=== PATIENT | female | born 1935 | race Caucasian/White ===

== ENCOUNTER 2017-03-10 10:49 | Outpatient (CLI) | payer MEDICARE ==
[2017-03-10 12:32] LABS: Hematocrit 37.7 % (36.0-47.0); Mean Platelet Volume 7.8 fL (7.4-10.4); Red Blood Cell (RBC) Count 3.73 mill/uL (4.20-5.40); White Blood Cell (WBC) Count 8.2 thou/uL (4.8-10.8)
[2017-03-10 12:40] LABS: PTT 31.3 SEC (22.9-36.1)
[2017-03-10 12:48] LABS: Anion Gap 14 mmol/L (10-20); BUN (Urea Nitrogen) 28 mg/dL (9.8-20.1); Calc. Creatinine Clearance 0 mL/min (70-130); Calcium 10.5 mg/dL (7.8-10.44); Carbon Dioxide 26 mmol/L (23-31); Chloride 104 mmol/L (98-107); Estimated GFR-MDRD 42
[2017-03-10 12:49] LABS: ALT (SGPT) 20 U/L (8-55); AST (SGOT) 17 U/L (5-34); Alkaline Phosphatase 64 U/L (40-150); Bilirubin, Total 0.3 mg/dL (0.2-1.2); Globulin 3.5 g/dL (2.4-3.5)
== END 2017-03-10 10:50 | disposition home or self-care (01) ==
LOC: LABBT 10:49
PROVIDERS: ATTEND Internal Medicine Cardiovascular Disease
DX: Z01.818 Encounter for other preprocedural examination (principal); I35.0 Nonrheumatic aortic (valve) stenosis
CPT/HCPCS: 80053; 85027; 85610; 85730; 93005; 93010

== ENCOUNTER 2017-03-18 05:43 | Day surgery (SDC) | payer MEDICARE ==
[2017-03-10 11:15] VITALS: BMI 24.3
[~2017-03-18 05:43] MED LIST: Iopamidol 370 76% 100 ML VIAL ONE
[2017-03-18] MEDS ORDERED: Heparin 1000 UNIT/NS 500ML(OR) 1,000 ML ONE (06:31)
[2017-03-18] MEDS ORDERED: Fentanyl 100 MCG/2 ML VIAL ONE (07:16)
[2017-03-18] MEDS ORDERED: Midazolam HCl 2 mg/2 ml Vial ONE (07:16)
== END 2017-03-18 13:30 | disposition home or self-care (01) ==
LOC: CCL 05:43
PROVIDERS: ATTEND Internal Medicine Cardiovascular Disease
DX: I35.0 Nonrheumatic aortic (valve) stenosis (principal); I25.10 Atherosclerotic heart disease of native coronary artery without angina pectoris; I10 Essential (primary) hypertension; E11.9 Type 2 diabetes mellitus without complications; E78.5 Hyperlipidemia, unspecified; Z88.8 Allergy status to other drugs, medicaments and biological substances
CPT/HCPCS: 76942; 93455; C1769; 99152; 99153; J1644; J2250; J3010

== ENCOUNTER 2018-08-18 12:47 | Observation (INO) | payer MEDICARE ==
[2018-08-18 13:48] LABS: #Basophils 0.1 thou/uL (0.0-0.2); #Eosinphils 0.2 thou/uL (0.0-0.7); #Lymphocytes 2.6 thou/uL (1.20-3.40); #Neutrophils 5.6 thou/uL (1.40-6.50); %Basophils 0.6 % (0.0-1.0); %Lymphocytes 27.5 % (21.0-51.0); %Monocytes 10.5 % (0.0-10.0); %Neutrophils 59.3 % (42.0-75.0); Hemoglobin 11.3 g/dL (12.0-16.0); Mean Corpuscular HGB CONC 32.2 g/dL (32.0-36.0); Mean Corpuscular Hemoglobin 32.4 pg (27.0-31.0); Mean Platelet Volume 7.7 fL (7.4-10.4); Platelet Count 182 thou/uL (130-400); RBC Distribution Width 13.3 % (11.5-14.5); White Blood Cell (WBC) Count 9.5 thou/uL (4.8-10.8)
--- NOTE | 2018-08-18 13:52 | RAD ---
XR Chest 1 View Portable History: [Weakness and blurry vision chest pain.] Comparison: Radiograph 2015 Findings: Defibrillator leads project over the chest bilaterally. Multiple midline sternotomy wires. No pneumothorax or effusion. Evidence of prior cardiac surgery. No effusion or pneumothorax. Impression: Chronic findings. No acute intrathoracic abnormality.
[2018-08-18 14:07] LABS: ALT (SGPT) 36 U/L (8-55); AST (SGOT) 23 U/L (5-34); Albumin 4.2 g/dL (3.4-4.8); Alkaline Phosphatase 58 U/L (40-150); Anion Gap 15 mmol/L (10-20); BUN (Urea Nitrogen) 28 mg/dL (9.8-20.1); Bilirubin, Total 0.3 mg/dL (0.2-1.2); Calc. Creatinine Clearance 0 mL/min (70-130); Calcium 9.7 mg/dL (7.8-10.44); Carbon Dioxide 21 mmol/L (23-31); Chloride 108 mmol/L (98-107); Estimated GFR-MDRD 37; Glucose 104 mg/dL (83-110); Potassium 5.5 mmol/L (3.5-5.1); Protein, Total 7.2 g/dL (6.0-8.3); Sodium 138 mmol/L (136-145)
--- NOTE | 2018-08-18 16:21 | PDOC.FPRHP ---
- History of Present Illness Chief Complaint: Generalized weakness History of Present Illness: 83 yo F with hx of 4V CABG, multiple cardiac & peripheral arterial stent placement, aortic valve replacement presents to ER for weakness and blurry vision. Started this morning when she was talking with her friends. Generalized weakness and blurry vision. Denies aphasia, focal weakness, vision loss. No history of stroke. This happened a few days ago. Both episodes resolved after a few hours. No other associated sxs such as chest pain, palpitations, dypsnea, orthopnea, BLE edema. Had aortic valve replacement 1 year ago[address] Cross. Had EKG done earlier this month, reported normal. In the ED was bradycardic in the 50s. EKG showed possible Afib. By time of assessment pulse up to 60s with no intervention. - Allergies/Adverse Reactions Allergies Allergy/AdvReac Type Severity Reaction Status Date / Time hydralazine [Hydralazine] Allergy Unknown Verified 03/10/17 11:15 pregabalin [From Lyrica] Allergy SWELLING Verified 03/10/17 11:15 - Home Medications Medication Instructions Recorded Confirmed Type Cholecalciferol (Vitamin D3) 1,000 unit PO BID 03/17/13 03/10/17 History [Vitamin D3] Insulin Glargine,Hum.Rec.Anlog 16 unit SC QAM 03/17/13 03/10/17 History [Lantus Solostar] Levothyroxine Sodium [Synthroid] 50 mcg PO DAILY 03/17/13 03/10/17 History Lisinopril [Prinivil] 5 mg PO HS 03/17/13 03/10/17 History Metoprolol Succinate [Toprol XL] 25 mg PO BID 03/17/13 03/10/17 History metFORMIN HCl 500 mg PO BID 03/17/13 03/10/17 History Nitroglycerin [Nitrostat] 0.4 mg SL PRN PRN 03/20/13 03/10/17 History amLODIPine Besylate [Norvasc] 5 mg PO DAILY 03/20/13 03/10/17 History Aspirin [Aspirin EC] 81 mg PO DAILY 07/11/14 03/10/17 History Allopurinol [Zyloprim] 300 mg PO HS 03/10/17 03/10/17 History Ferrous Sulfate [Iron] 325 mg PO ASDIR 03/10/17 03/10/17 History Dyer-3 Fatty Acids/Fish Oil [Fish 2 cap PO DAILY 03/10/17 03/10/17 History Oil 1,000 mg Capsule] Rosuvastatin Calcium 10 mg PO HS 03/10/17 03/10/17 History - History PMHx: CAD s/p 4V CABG, Hypothyroidism, GERD, HLD, Chronic bronchitis, DM type II , HTN, Aortic valve replacement PSHx: CABG 4V, Aortic valve replacement, Cardiac cath 2016 with 50% stenosis of graft FHx: HTN, cardiac history Social: denies tobacco, social etoh, no drugs - Review of Systems General: denies: fever/chills, weight/appetite/sleep changes Eyes: reports: vision changes ENT: denies: nasal congestion, rhinorrhea Respiratory: denies: cough, congestion, shortness of breath Cardiovascular: denies: chest pain Gastrointestinal: denies: nausea, vomiting Genitourinary: denies: dysuria, polyuria Skin: denies: rashes Musculoskeletal: denies: stiffness, swelling Neurological: reports: weakness. denies: numbness, syncope, seizure - Vital signs BP: 121/40 HR: 45 RR: 15 Tmax: 98F Pox: 97% on RA Wt: 75 kg - Physical Exam Constitutional: NAD, awake, alert and oriented HEENT: normocephalic and atraumatic, PERRLA, EOMI, conjunctiva clear, no scleral icterus Neck: supple, FROM, trachea midline Chest: no-tender to palpation Heart: RRR -Heart: systolic aortic murmur Lungs: CTAB, no respiratory distress Abdomen: soft, non-tender Musculoskeletal: normal structure, normal tone Neurological: no focal deficit, CN II-XII intact Skin: no rash/lesions, good turgor FMR H&P: Results - Labs Result Diagrams: 08/18/18 13:35 08/18/18 13:35 Lab results: WBC 9.5 thou/uL (4.8-10.8) 08/18/18 13:35 Hgb 11.3 g/dL (12.0-16.0) L 08/18/18 13:35 Hct 35.2 % (36.0-47.0) L 08/18/18 13:35 MCV 101.0 fL (78.0-98.0) H 08/18/18 13:35 Plt Count 182 thou/uL (130-400) 08/18/18 13:35 Neutrophils % 59.3 % (42.0-75.0) 08/18/18 13:35 Sodium 138 mmol/L (136-145) 08/18/18 13:35 Potassium 5.5 mmol/L (3.5-5.1) H 08/18/18 13:35 Chloride 108 mmol/L (98-107) H 08/18/18 13:35 Carbon Dioxide 21 mmol/L (23-31) L 08/18/18 13:35 BUN 28 mg/dL (9.8-20.1) H 08/18/18 13:35 Creatinine 1.37 mg/dL (0.6-1.1) H 08/18/18 13:35 Glucose 104 mg/dL (83-110) 08/18/18 13:35 Calcium 9.7 mg/dL (7.8-10.44) 08/18/18 13:35 Total Bilirubin 0.3 mg/dL (0.2-1.2) 08/18/18 13:35 AST 23 U/L (5-34) 08/18/18 13:35 ALT 36 U/L (8-55) 08/18/18 13:35 Alkaline Phosphatase 58 U/L (40-150) 08/18/18 13:35 B-Natriuretic Peptide 138.1 pg/mL (0-100) H 08/18/18 13:35 Serum Total Protein 7.2 g/dL (6.0-8.3) 08/18/18 13:35 Albumin 4.2 g/dL (3.4-4.8) 08/18/18 13:35 - EKG Interpretation EKG: Afib with controlled ventricular response, HR 46, Complete LBBB - Radiology Interpretation Chest x-ray Status: report reviewed by me Additional comment: HERRERA FMR H&P: A/P - Problem List (1) New onset atrial fibrillation Current Visit: Yes Status: Acute Code(s): I48.91 - UNSPECIFIED ATRIAL FIBRILLATION (2) CAD (coronary artery disease) Current Visit: Yes Status: Acute Code(s): I25.10 - ATHSCL HEART DISEASE OF [place] CORONARY ARTERY W/O ANG PCTRS (3) Hypothyroid Current Visit: Yes Status: Acute Code(s): E03.9 - HYPOTHYROIDISM, UNSPECIFIED (4) GERD (gastroesophageal reflux disease) Current Visit: Yes Status: Acute Code(s): K21.9 - GASTRO-ESOPHAGEAL REFLUX DISEASE WITHOUT ESOPHAGITIS (5) HLD (hyperlipidemia) Current Visit: Yes Status: Acute Code(s): E78.5 - HYPERLIPIDEMIA, UNSPECIFIED (6) Chronic bronchitis Current Visit: Yes Status: Acute Code(s): J42 - UNSPECIFIED CHRONIC BRONCHITIS (7) DM type 2 (diabetes mellitus, type 2) Current Visit: Yes Status: Acute (8) Hypertension Current Visit: No Status: Acute Code(s): I10 - ESSENTIAL (PRIMARY) HYPERTENSION - Plan Symptomatic bradycardia vs. New onset Afib -Sxatic karey possible 2/2 new onset afib. Difficult to read baseline on EKG in ER, will repeat -EKG done 1 year ago showed bradycardia, 1st degree AVB, but no Afib -Patient has history of sinus bradycardia, onset of new sxs could be due to new afib -Trops negative, will trend -BNP mildly elevatd in low 100s, possible new onset HF. Will obtain TTE to reassess since last one was in Feb 2018 -Patient with extensive cardiac hx, s/p aortic valve replacement 1 yr ago, repeat TTE can reeeval for valvular etiology -Cardiac cath 2017 showed 50% stenosis of right coronary artery. If further stenosis has occurred, could be cause as well -Dr Cross consulted, plans to see patient in morning -CHADSVASC2 6, HASBLED4, will not start on nursing home anticoagulation, awaiting cards recs-will start ppx lovenox Hyperkalemia, mild -5.5, no EKG changes -pt scheduled to receive nighttime insulin, should dec -recheck in AM IDDM2 -SS to cover -will resume home meds HTN -home meds Hypothyroidism -home meds HLD -home meds CKD -at baseline Chronic anemia -stable CAD -home meds code: full PCP: connor dvt ppx: lovenox diet:HH/CC dispo: <2 midnightss Discussed w/ Dr. Mota FMR H&P: Upper Level - Pertinent history 83 yo F w/hx of CAD s/p CABG over 20 years ago, HTN, hypothyroid, CKD, and DM2 here with complaint of 2 episodes of generalized weakness lasting for several hours the resolving. She states that the first episode was 2 days ago and then again today. Currently she is asymptomatic. EKG with EMS showed afib with bradycardia. Labs in ED appear to be at baseline. ROS General denies fever or chills Neuro complains of generalized weakness. denies focal weakness or numbness CV denies CP, palpitations, or edema Resp denies SOB or cough Abd denies n/v/d - Pertinent findings See general internal medicine doctor note for vitals EKG shows LBBB and bradycardia. Possible afib, however baseline is poor. PE General A&O x4, no acute distress HEENT NCAT CV RRR, no murmur Resp CTA Neuro no focal deficits, normal UE and LE strength, CN II-XII intact - Plan Date/Time: 08/18/18 1620 I, Ruben Felipe DO, have evaluated this patient and agree with findings/plan as outlined by general internal medicine doctor resident. Pertinent changes/additions are listed here. 1. Symptomatic Bradycardia - possibly related to new onset afib. Currently in NSR and EKG has a poor baseline. Pt has hx of LBBB and 1st degree AV block - Admit to tele obs - Consult Cardiology, Dr Cross - [place] 6, HASBLED 4. Will start prophylactic lovenox now and discuss possibly termination clerk anticoagulation after cardiology has seen pt 2. CAD - Continue home meds - normal trops, no concern for ACS 3. Hypothyroid - TSH at target - Continue home meds 4. Chronic anemia - stable, continue home iron 5. DM2 - currently has normal sugar. - home meds - accucheck achs 6. HTN - controlled, continue home meds Dispo: currently stable. Likely length of stay less than 48 hours.
[2018-08-18 18:13] LABS: Troponin I Less than 0.010 ng/mL (< 0.028)
[2018-08-18 20:37] VITALS: BMI 24.2
[2018-08-18] MEDS ORDERED: Dextrose 5% in Water 1,000 ML IV PRN (20:42)
[2018-08-18] MEDS ORDERED: HumaLOG 300 UNITS/3 ML VIAL SC PRN (20:42)
[2018-08-18] MEDS ORDERED: Dextrose 50% Abboject 50 ML SYRINGE SLOW IVP PRN (20:42)
[2018-08-18] MEDS ORDERED: Insulin Regular 300 UNITS/3 ML VIAL SC PRN (20:42)
[2018-08-18 21:27] LABS: Troponin I 0.011 ng/mL (< 0.028)
[2018-08-19 06:48] LABS: #Eosinphils 0.2 thou/uL (0.0-0.7); #Lymphocytes 2.3 thou/uL (1.20-3.40); #Monocytes 0.9 thou/uL (0.11-0.59); #Neutrophils 4.7 thou/uL (1.40-6.50); %Basophils 0.6 % (0.0-1.0); %Lymphocytes 28.3 % (21.0-51.0); %Monocytes 10.5 % (0.0-10.0); %Neutrophils 58.5 % (42.0-75.0); Mean Corpuscular HGB CONC 32.7 g/dL (32.0-36.0); Mean Corpuscular Hemoglobin 32.6 pg (27.0-31.0); Mean Corpuscular Volume 99.6 fL (78.0-98.0); Mean Platelet Volume 7.7 fL (7.4-10.4); Platelet Count 165 thou/uL (130-400); RBC Distribution Width 13.3 % (11.5-14.5); Red Blood Cell (RBC) Count 3.39 mill/uL (4.20-5.40)
--- NOTE | 2018-08-19 06:49 | PDOC.FM ---
- Subjective Subjective: Denies any symptoms of dizziness, presyncope, palpitations. No overnight events. Feeling well. - Objective MAR Reviewed: Yes Vital Signs & Weight: Vital Signs (12 hours) Temp Pulse Resp BP Pulse Ox 08/19/18 06:18 57 L 161/77 H 08/19/18 03:48 98.0 F 71 16 192/78 H 94 L 08/18/18 20:40 98.3 F 73 16 172/70 H 98 Weight Weight 70.125 kg I&O: 08/17/18 08/18/18 08/19/18 06:59 06:59 06:59 Intake Total 600 Output Total 400 Balance 200 Result Diagrams: 08/19/18 06:27 08/19/18 06:27 Phys Exam - Physical Examination Constitutional: NAD HEENT: moist MMs Neck: supple bilateral radiation from aortic valve Respiratory: no wheezing, clear to auscultation bilateral Cardiovascular: RRR Gastrointestinal: soft, non-tender, positive bowel sounds Musculoskeletal: no edema Neurological: moves all 4 limbs Psychiatric: normal affect, A&O x 3 Skin: no rash Dx/Plan (1) CAD (coronary artery disease) Code(s): I25.10 - ATHSCL HEART DISEASE OF [place] CORONARY ARTERY W/O ANG PCTRS Status: Acute (2) DM type 2 (diabetes mellitus, type 2) Status: Acute (3) GERD (gastroesophageal reflux disease) Code(s): K21.9 - GASTRO-ESOPHAGEAL REFLUX DISEASE WITHOUT ESOPHAGITIS Status: Acute (4) HLD (hyperlipidemia) Code(s): E78.5 - HYPERLIPIDEMIA, UNSPECIFIED Status: Acute (5) Hypothyroid Code(s): E03.9 - HYPOTHYROIDISM, UNSPECIFIED Status: Acute (6) New onset atrial fibrillation Code(s): I48.91 - UNSPECIFIED ATRIAL FIBRILLATION Status: Acute (7) Chest pain Code(s): R07.9 - CHEST PAIN, UNSPECIFIED Status: Acute (8) Hypertension Code(s): I10 - ESSENTIAL (PRIMARY) HYPERTENSION Status: Acute (9) Bradycardia Code(s): R00.1 - BRADYCARDIA, UNSPECIFIED Status: Acute - Plan Plan: Ms Seay is an 83yo female with pmh of DM, HLD, CAD presenting with symptomatic bradycardia Symptomatic bradycardia - Trops negative x3 - Extensive cardiac hx, s/p aortic valve replacement 1 yr ago - Cardiac cath 2017: 50% stenosis of RCA. - Dr Cross consulted Elevated BNP - Mildly elevated 138 - Echo ordered Hyperkalemia, resolved IDDM2 - SSI, ACHS accuchecks, hypoglycemic protocol - CC diet - Continue home meds HTN - Continue home meds Hypothyroidism - Continue home meds HLD - Continue home meds CKD - At baseline Chronic anemia CAD - Continue home meds Code Status: FULL DVT ppx: Lovenox PCP: Dr Huitron Addendum - Attending - Attending Attestation Date/Time: 08/19/18 4920 I personally evaluated the patient and discussed the management with Dr. Torres. I agree with the History, Examination, Assessment and Plan documented above with any addition or exceptions noted below. The patient is sitting up in a chair. Her bradycardia is improved since holding metoprolol. will f/u with cardiology recs, but anticipate discharge later today.
[2018-08-19 07:10] LABS: Anion Gap 12 mmol/L (10-20); BUN (Urea Nitrogen) 24 mg/dL (9.8-20.1); Calc. Creatinine Clearance 39 mL/min (70-130); Calcium 9.6 mg/dL (7.8-10.44); Carbon Dioxide 27 mmol/L (23-31); Chloride 107 mmol/L (98-107); Estimated GFR-MDRD 43; Glucose 84 mg/dL (83-110); Potassium 4.6 mmol/L (3.5-5.1); Sodium 141 mmol/L (136-145)
[2018-08-19] MEDS ORDERED: Enoxaparin Sodium 40 MG/0.4 ML SYRINGE SC SCH (09:00)
[2018-08-19] MEDS ORDERED: Lisinopril 10 MG TAB PO SCH ×2 (10:08→10:15)
[2018-08-19] MEDS ORDERED: NIFEdipine XL 30 MG TAB PO SCH ×2 (10:08→10:15)
[2018-08-19 11:50] VITALS: BP 167/76; TEMP 97.9
--- NOTE | 2018-08-19 12:29 | CON ---
DATE OF CONSULTATION: 08/19/2018 REASON FOR CONSULTATION: Dizziness, lightheadedness, and bradycardia. HISTORY OF PRESENT ILLNESS: Ms. Seay is a very pleasant 83-year-old woman. She has a history of coronary artery disease and previous transcutaneous aortic valve replacement. The patient had also had previous bypass surgery. The patient had transcutaneous aortic valve replacement done in April of 2017. She had a cardiac catheterization done in the fall showing previously placed stents were patent with good flow. The patient had dizziness and lightheadedness when standing almost felt like she was very unsteady like she could even fall. She did get to sit down quickly and feel better, but just felt weak, came here to the emergency room, found to have bradycardia, initially was diagnosed with atrial fibrillation, but looking at the EKG looks like a sinus bradycardia. The patient is feeling better now. The patient otherwise has been doing fairly well, but had a similar episode within the last week. PAST MEDICAL HISTORY: 1. Previous transcutaneous aortic valve replacement for aortic stenosis. 2. Coronary artery disease. 3. Hypertension, labile. ALLERGIES: HYDRALAZINE. HYDRALAZINE ACTUALLY CAUSED ANGINA AND PREGABALIN. MEDICATIONS: At home included: 1. Metoprolol 25 mg twice a day. 2. Lisinopril 10 mg a day. 3. Insulin. 4. Nifedipine long-acting 30 mg a day. 5. Metformin. REVIEW OF SYSTEMS: CONSTITUTIONAL: No significant weight gain or loss. VISION: No changes. HEARING: No changes. PULMONARY: No cough or wheezing. GASTROINTESTINAL: No nausea, vomiting or diarrhea. SKIN: No rashes. NEUROLOGIC: No unilateral weakness or numbness. PSYCHIATRIC: No unusual depression or anxiety. PHYSICAL EXAMINATION: GENERAL: This is pleasant patient. VITAL SIGNS: Blood pressure is 157/68, pulse 71, it is regular. LUNGS: Clear. CARDIAC: Normal S1, normal S2 with soft systolic murmur left mid sternal border and left upper sternal border. No diastolic murmur. No S3. ABDOMEN: Soft and nontender. EXTREMITIES: No clubbing, cyanosis, or edema. DIAGNOSTIC STUDIES: EKG yesterday, the computer interpreted as atrial fibrillation, but there was significant baseline artifact and it is actually sinus bradycardia with a first-degree AV block and a left bundle branch block with a QRS duration of 0.14. ASSESSMENT: 1. Sinus bradycardia. 2. Labile blood pressure. 3. Coronary artery disease with previous bypass surgery and stent implantation. Most recent cardiac catheterization was done in 02/2017. This revealed the following: a. Three vessel disease. b. Internal mammary patent to the left anterior descending. c. Diffusely diseased saphenous vein graft to diffusely diseased obtuse marginal. d. Patent saphenous vein graft to the right coronary artery with 50% stenosis in the body of the graft, stent widely patent. PLAN: 1. Stop beta-rolan. 2. Monitor. 3. Echo pending. 4. If heart rate is adequate this afternoon, could be released home. Outpatient stress testing to be done. She does have some area, which cannot be revascularized in the circumflex distribution, but did not have any angina with any of these episodes and her troponin levels were all normal. Job ID: [id number]
--- NOTE | 2018-08-19 13:25 | PRG ---
DATE OF SERVICE: 08/19/2018 Ms. Seay had an echocardiogram done today. The ejection fraction is normal. The transcutaneous aortic valve is functioning normally. The patient has had no further bradycardia since being taken off metoprolol. The patient will come to our office and have a 5-day Holter monitor placed. In addition, stress testing will be done as an outpatient in view of her previous history of coronary artery disease and bradycardia. Job ID: [id number]
[2018-08-20] MEDS ORDERED: Lisinopril 10 MG TAB PO SCH (09:00)
[2018-08-20] MEDS ORDERED: NIFEdipine XL 30 MG TAB PO SCH (09:00)
--- NOTE | 2018-08-21 02:47 | DIS ---
DATE OF ADMISSION: 08/18/2018 DATE OF DISCHARGE: 08/19/2018 RESIDENT: Skye Torres MD. ADMITTING ATTENDING: Marcelo Mota MD. DISCHARGE ATTENDING: Wendy Sinha MD. CONSULT: Cardiology. PROCEDURE: 1. Chest x-ray, chronic findings. No intrathoracic abnormality. Defibrillator leads over chest bilaterally. Multiple midline sternotomy wires. No pneumothorax or effusion. 2. Echocardiogram. EF 55% to 60%. Mild mitral regurgitation. Normally functioning bioprosthetic valve in aortic position, peak gradient 16 mmHg and mean gradient 8 mmHg. Excellent function. No aortic regurgitation. Tricuspid valve is normal. Trace tricuspid regurgitation. PRIMARY DIAGNOSIS: Symptomatic bradycardia. SECONDARY DIAGNOSES: 1. Elevated BNP. 2. Hyperkalemia, resolved. 3. Insulin-dependent type 2 diabetes. 4. Hypertension. 5. Hypothyroidism. 6. Hyperlipidemia. 7. Chronic kidney disease. 8. Chronic anemia. 9. Coronary artery disease. DISCHARGE MEDICATIONS: 1. Allopurinol 300 mg at bedtime. 2. Aspirin 81 mg daily. 3. Vitamin D3 of 1000 units b.i.d. 4. Ferrous sulfate 325 mg 4 times a week. 5. Lantus 26 units q.a.m. 6. Levothyroxine 50 mcg daily. 7. Lisinopril 10 mg daily. 8. Metformin 500 mg b.i.d. 9. Nifedipine 30 mg daily. 10. Nitrostat 0.4 sublingual p.r.n. 11. Rosuvastatin 20 mg at bedtime. HISTORY OF PRESENT ILLNESS/HOSPITAL COURSE: Ms. Seay is an 83-year-old female with past medical history of CABG x4 vessels, multiple cardiac and peripheral artery stent placement, aortic valve replacement, who presented to the ER for weakness and blurry vision as well as a syncopal episode on Friday. She had an aortic valve replacement one year ago and follows with Dr. Cross and normal EKG earlier this month. In the ED, the patient was bradycardic in the 50s and he was concerning for possible atrial fibrillation. Admission vitals; blood pressure 121/40, heart rate 45, afebrile. Cardiac exam notable for systolic murmur with radiation to the carotids. EKG showed possible atrial fibrillation with controlled ventricular response, heart rate 46. Complete left bundle branch block. Troponins were negative. BNP 138.1. TSH is normal. Initial creatinine 1.37, 1.2 at discharge. The patient was anemic at 11.3. The patient did have mild hyperkalemia of 5.5, discharge potassium without medical intervention with the exception of patient's routine bedtime insulin was 4.6. Cardiology was consulted, Dr. Cross. He recommended taking the patient off metoprolol and this caused resolution of the patient's bradycardia. The patient will follow up in his office and have a 5- day Holter monitor placed in addition to stress test will be done as an outpatient. In regard to her insulin-dependent type 2 diabetes, hypertension, hypothyroidism, hyperlipidemia, and CAD, these were stable on her home medications. Her CKD was at baseline as well as her chronic anemia. DISPOSITION: Stable. DISCHARGE INSTRUCTIONS: 1. Location: Home. 2. Diet: Heart healthy, carb consistent. 3. Activity: No restrictions. 4. Follow up with PCP, Dr. Huitron within 3-7 days, as well as Dr. Cross, Cardiology. Job ID: [id number] [facility]
== END 2018-08-19 15:19 | disposition home or self-care (01) ==
LOC: ERS 12:47 → ERHOLD 17:16 → 2SW 20:24
PROVIDERS: ADMIT Family Medicine; ATTEND Family Medicine
DX: R00.1 Bradycardia, unspecified (principal); R53.1 Weakness; H53.8 Other visual disturbances; R42 Dizziness and giddiness; I25.10 Atherosclerotic heart disease of native coronary artery without angina pectoris; E03.9 Hypothyroidism, unspecified; K21.9 Gastro-esophageal reflux disease without esophagitis; E78.5 Hyperlipidemia, unspecified; J42 Unspecified chronic bronchitis; I48.91 Unspecified atrial fibrillation; E87.5 Hyperkalemia; I12.9 Hypertensive chronic kidney disease with stage 1 through stage 4 chronic kidney disease, or unspecified chronic kidney disease; E11.22 Type 2 diabetes mellitus with diabetic chronic kidney disease; N18.9 Chronic kidney disease, unspecified; D63.1 Anemia in chronic kidney disease; Z95.1 Presence of aortocoronary bypass graft; Z95.5 Presence of coronary angioplasty implant and graft; Z95.820 Peripheral vascular angioplasty status with implants and grafts; Z95.2 Presence of prosthetic heart valve; Z88.8 Allergy status to other drugs, medicaments and biological substances; Z79.4 Long term (current) use of insulin; Z79.82 Long term (current) use of aspirin; Z79.899 Other long term (current) drug therapy
CPT/HCPCS: 71045; 80048; 82962 ×2; 83735; 83880; 84484 ×2; 85025; 93005; 93306; 96372; 99285; G0378 ×2; 36415; 36416; 80053; 84443; J1650

== ENCOUNTER 2020-01-01 20:01 | Inpatient (IN) | payer MEDICARE, OTHER ==
--- NOTE | 2020-01-01 20:33 | RAD ---
Exam: Chest one view HISTORY:Chest pain. Comparison: 08/18/2018 FINDINGS: Cardiac silhouette:Normal cardiac silhouette. There are sternotomy wires and coronary artery stent. Aorta: Atherosclerosis Pulmonary vessels: Normal Costophrenic angles: Clear LUNGS: No masses or consolidation. Pneumothorax: None Osseous abnormalities: None IMPRESSION: No acute cardiopulmonary process. Atherosclerosis.
[2020-01-01] MEDS ORDERED: Morphine 4 MG/ML VIAL ONE (20:42)
[2020-01-01 20:47] LABS: #Eosinphils 0.1 thou/uL (0.0-0.7); #Lymphocytes 2.3 thou/uL (1.20-3.40); #Monocytes 0.9 thou/uL (0.11-0.59); #Neutrophils 7.8 thou/uL (1.40-6.50); %Basophils 0.4 % (0.0-1.0); %Eosinophils 0.5 % (0.0-10.0); %Lymphocytes 20.7 % (21.0-51.0); %Monocytes 8.4 % (0.0-10.0); %Neutrophils 69.9 % (42.0-75.0); Mean Corpuscular HGB CONC 32.5 g/dL (32.0-36.0); Mean Corpuscular Hemoglobin 33.3 pg (27.0-31.0); Mean Platelet Volume 8.2 fL (7.4-10.4); Platelet Count 187 thou/uL (130-400); Red Blood Cell (RBC) Count 3.31 mill/uL (4.20-5.40); White Blood Cell (WBC) Count 11.1 thou/uL (4.8-10.8)
[2020-01-01 21:22] LABS: ALT (SGPT) 16 U/L (8-55); AST (SGOT) 21 U/L (5-34); Albumin 4.2 g/dL (3.4-4.8); Alkaline Phosphatase 55 U/L (40-110); Anion Gap 21 mmol/L (10-20); BUN (Urea Nitrogen) 29 mg/dL (9.8-20.1); Bilirubin, Total 0.3 mg/dL (0.2-1.2); Calc. Creatinine Clearance 0 mL/min (70-130); Calcium 9.4 mg/dL (7.8-10.44); Carbon Dioxide 19 mmol/L (23-31); Chloride 106 mmol/L (98-107); Estimated GFR-MDRD 39; Glucose 62 mg/dL (83-110); Potassium 4.7 mmol/L (3.5-5.1); Protein, Total 7.2 g/dL (6.0-8.3); Sodium 141 mmol/L (136-145)
[2020-01-01] MEDS ORDERED: Dextrose 50% Abboject 50 ML SYRINGE SLOW IVP PRN (23:24)
[2020-01-01] MEDS ORDERED: HumaLOG 300 UNITS/3 ML VIAL SC PRN (23:24)
[2020-01-01] MEDS ORDERED: Dextrose 5% in Water 1,000 ML IV PRN (23:24)
[2020-01-01] MEDS ORDERED: Acetaminophen 325 MG TAB PO PRN (23:24)
--- NOTE | 2020-01-01 23:28 | PDOC.FPRHP ---
- History of Present Illness Chief Complaint: Chest Pain History of Present Illness: This is a 84 y/o F who presents today with CP that began this evening around 5: 45pm. She states that she began to experience chest tightness and took 2 of her home medication nitro which did not help with her symptoms. She admitted to radiation of the tightness into her L arm, but denied weakness/numbness to one side of her body, or facial droop, or SOB. She did admit to a little lightheadness but no vision changes. She denied any remitting or exacerbating factors. ED Course: asa, nitro - Allergies/Adverse Reactions Allergies Allergy/AdvReac Type Severity Reaction Status Date / Time hydralazine [Hydralazine] Allergy Unknown Verified 07/11/19 19:10 pregabalin [From Lyrica] Allergy SWELLING Verified 07/11/19 19:10 - Home Medications Medication Instructions Recorded Confirmed Type Cholecalciferol (Vitamin D3) 1,000 unit PO BID 03/17/13 01/01/20 History [Vitamin D3] Insulin Glargine,Hum.Rec.Anlog 26 unit SC QAM 03/17/13 01/01/20 History [Lantus Solostar] Levothyroxine Sodium [Synthroid] 50 mcg PO DAILY 03/17/13 01/01/20 History metFORMIN HCl 500 mg PO BID 03/17/13 01/01/20 History Nitroglycerin [Nitrostat] 0.4 mg SL PRN PRN 03/20/13 01/01/20 History Aspirin [Aspirin EC] 81 mg PO DAILY 07/11/14 01/01/20 History Allopurinol [Zyloprim] 300 mg PO HS 03/10/17 01/01/20 History Ferrous Sulfate [Iron] 325 mg PO ASDIR 03/10/17 01/01/20 History Rosuvastatin Calcium 20 mg PO HS 03/10/17 01/01/20 History Gabapentin 300 mg PO TID 01/01/20 01/01/20 History Lisinopril [Zestril] 10 mg PO HS 01/01/20 01/01/20 History NIFEdipine [Procardia XL] 30 mg PO HS 01/01/20 01/01/20 History Pantoprazole [Protonix] 40 mg PO DAILY 01/01/20 01/01/20 History - History PMHx: -HTN -DM -CAD -Gout PSHx: -CABG 20 years ago -carotid endartecomy -valve replacement 2018 -cholecystectomy -hysterectomy FHx: -unremarkable Social: never smoker, occasional etoh, no drug use - Review of Systems General: denies: fever/chills, weight/appetite/sleep changes, night sweats Eyes: denies: eye pain, vision changes ENT: denies: nasal congestion, rhinorrhea Respiratory: denies: cough, congestion, shortness of breath Cardiovascular: reports: chest pain. denies: palpitation, edema Gastrointestinal: denies: nausea, vomiting, diarrhea Genitourinary: denies: incontinence, dysuria, polyuria Skin: denies: lesions, jaundice, itching Musculoskeletal: denies: pain, tenderness Neurological: denies: numbness, syncope Psychological: denies: anxiety, depression - Vital signs 175/109 BP, HR 70, RR 12, Temp 98.7, O2 98% - Physical Exam Constitutional: NAD, awake, alert and oriented HEENT: normocephalic and atraumatic, PERRLA, grossly normal hearing Neck: supple Chest: no-tender to palpation Heart: RRR, normal S1/S2, no murmurs/rubs/gallops Lungs: CTAB, no respiratory distress, good air movement, no rales/rhonchi, no wheezing, no retractions Abdomen: soft, non-tender, bowel sounds present Musculoskeletal: normal structure, normal tone, ROM grossly normal Neurological: no focal deficit, CN II-XII intact, normal sensation Skin: no rash/lesions, good turgor, capillary refill <2 seconds Heme/Lymphatic: no unusual bruising or bleeding, no purpura, no petechia Psychiatric: normal mood and affect, good judgment and insight, intact recent and remote memory FMR H&P: Results - Labs Result Diagrams: 01/02/20 04:37 01/02/20 04:37 Lab results: WBC 11.1 thou/uL (4.8-10.8) H 01/01/20 20:37 Hgb 11.0 g/dL (12.0-16.0) L 01/01/20 20:37 Hct 33.9 % (36.0-47.0) L 01/01/20 20:37 MCV 102.0 fL (78.0-98.0) H 01/01/20 20:37 Plt Count 187 thou/uL (130-400) 01/01/20 20:37 Neutrophils % 69.9 % (42.0-75.0) 01/01/20 20:37 Sodium 141 mmol/L (136-145) 01/01/20 20:37 Potassium 4.7 mmol/L (3.5-5.1) 01/01/20 20:37 Chloride 106 mmol/L (98-107) 01/01/20 20:37 Carbon Dioxide 19 mmol/L (23-31) L 01/01/20 20:37 BUN 29 mg/dL (9.8-20.1) H 01/01/20 20:37 Creatinine 1.29 mg/dL (0.6-1.1) H 01/01/20 20:37 Glucose 62 mg/dL (83-110) L 01/01/20 20:37 Calcium 9.4 mg/dL (7.8-10.44) 01/01/20 20:37 Total Bilirubin 0.3 mg/dL (0.2-1.2) 01/01/20 20:37 AST 21 U/L (5-34) 01/01/20 20:37 ALT 16 U/L (8-55) 01/01/20 20:37 Alkaline Phosphatase 55 U/L (40-110) 01/01/20 20:37 Serum Total Protein 7.2 g/dL (6.0-8.3) 01/01/20 20:37 Albumin 4.2 g/dL (3.4-4.8) 01/01/20 20:37 - EKG Interpretation EKG: NSR, LBBB. Prolonged QRS. Possible ST elevations in V1-2. - Radiology Interpretation Chest x-ray Status: report reviewed by me (no acute cardiopulmonary process, athersclerosis) FMR H&P: A/P - Plan This is an 84 y/o F who presents today with chest pain. 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 continue to monitor. FMR H&P: Upper Level - Plan Date/Time: 01/01/202327 I, Flaquito Santiago PGY3, have evaluated this patient and agree with findings/plan as outlined by software development intern resident. Pertinent changes/additions are listed here. 84F with pmh of CAD s/p 4v CABG decades ago presents with complaint of substernal CP which was relieved by morphine, nitro, ASA. Her exam significant for normal cardiopulmonary exam A/P: CP likely 2/2 GI vs. MSK A- hemodynamically stable and CP is resolved. trop negative, cxr wnl, EKG shows some ST elevations in V1-V2 and LBBB (EKG from 2019 shows LBBB and some ST elevation in V1). Echo from August 2018 showed EF of 55-60%. She follows with Dr. Cross. P- admit to tele for observation -trend trops -plan for AM stress test -npo at midnight and hold AM metoprolol -continue home crestor chart review hx of Afib A- Currently in NSR. Afib was new diagnosis on last admission. Pt is not sure of this diagnosis but does know that she followed up with Dr. Cross. She had been on Brilinta but was taken off. P- continue home metoprolol after stress test -continue home ASA -f/u cardiology regarding blood thinners DM2 -home meds, accuchecks, CC diet HTN, hypothyroid, CKD, HLD -quiescent, continue home meds CODE: FULL dispo: tele, obs. expect stay < 2 midnights IVF: KVO Diet: CC, npo at midnight PCP: Elana Addendum - Attending - Attending Attestation Date/Time: 01/02/20 0642 I personally evaluated the patient and discussed the management with Dr. Ambrosio. I agree with the History, Examination, Assessment and Plan documented above with any addition or exceptions noted below. The patient admitted with chest pain and took nitro at home without relief. Her cardiac enzymes have increased overnight. She now has minimal to no chest pain. Will consult cardiology, Dr. Cross is her bi manager.
[2020-01-01 23:45] VITALS: BMI 22.4
[2020-01-02] MEDS ORDERED: Nitroglycerin 0.4 MG TAB (25 Tab Bottle) SL PRN (00:11)
[2020-01-02] MEDS ORDERED: Rosuvastatin 20 MG TAB PO SCH ×2 (00:15→21:00)
[2020-01-02] MEDS ORDERED: NIFEdipine XL 30 MG TAB PO SCH ×2 (00:15→21:00)
[2020-01-02] MEDS ORDERED: Lisinopril 10 MG TAB PO SCH ×2 (00:30→21:00)
[2020-01-02] MEDS ORDERED: Allopurinol 300 MG TAB PO SCH ×2 (00:30→21:00)
[2020-01-02] MEDS ORDERED: Gabapentin 300 MG CAP PO SCH ×2 (00:30→09:00)
[2020-01-02 05:22] LABS: #Basophils 0.1 thou/uL (0.0-0.2); #Eosinphils 0.1 thou/uL (0.0-0.7); #Lymphocytes 2.4 thou/uL (1.20-3.40); #Neutrophils 5.3 thou/uL (1.40-6.50); %Basophils 1.2 % (0.0-1.0); %Lymphocytes 26.7 % (21.0-51.0); Hemoglobin 10.4 g/dL (12.0-16.0); Mean Corpuscular HGB CONC 32.9 g/dL (32.0-36.0); Mean Corpuscular Hemoglobin 33.3 pg (27.0-31.0); Mean Platelet Volume 8.2 fL (7.4-10.4); Platelet Count 177 thou/uL (130-400); Red Blood Cell (RBC) Count 3.13 mill/uL (4.20-5.40); White Blood Cell (WBC) Count 8.9 thou/uL (4.8-10.8)
--- NOTE | 2020-01-02 05:41 | PDOC.FM ---
- Subjective Subjective: Very sleepy this morning. Reports that her chest pain has improved and that she is not experiencing any at the moment. She does reports some burning in her lower extremities, but says that this is not new and is something she experiences regularly. Denies SOB, NV - Objective MAR Reviewed: Yes Vital Signs & Weight: Vital Signs (12 hours) Temp Pulse Resp BP BP Pulse Ox 01/02/20 03:10 97.9 F 85 16 140/65 96 01/02/20 00:29 95 177/77 H 01/02/20 00:28 107 H 177/77 H 01/01/20 23:24 97.7 F 107 H 18 199/86 H 98 Weight Weight 64.909 kg I&O: 12/31/19 01/01/20 01/02/20 06:59 06:59 06:59 Intake Total 600 Output Total 800 Balance -200 Result Diagrams: 01/02/20 04:37 01/02/20 04:37 EKG Reviewed by me: Yes (SR) Phys Exam - Physical Examination Constitutional: NAD (Very sleepy on exam) Respiratory: no wheezing, no rales, no rhonchi, clear to auscultation bilateral Cardiovascular: RRR, no significant murmur, no rub Gastrointestinal: soft, non-tender, no distention, positive bowel sounds Musculoskeletal: no edema Skin: no rash Dx/Plan - Plan Plan: Chest pain 2/2 to ACS vs. GI vs. 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 > 1.24, near baseline -continue to monitor HTN -initial SBPs in 160s-170s, improved with night meds -will restart home meds -continue to monitor Anemia -chronic -Hgb: 11 > 10.4 -MCV > 100; will order B12 and folate -restart home iron DM type 2 -home metformin -holding home lantus -SSI, hypoglycemia protocol Hx of Gout -home meds Hypothyroidism -home meds GERD -home meds CODE: FULL DIET: HH VTE: th lovenox PCP: Elana Dispo: pending further medical management Addendum - Attending - Attending Attestation Date/Time: 01/02/20 1312 I personally evaluated the patient and discussed the management with Dr. Kruger. I agree with the History, Examination, Assessment and Plan documented above with any addition or exceptions noted below. Patient's cardiac enzymes have increased overnight. Her chest pain is better. Consulting cardiology for further recs.
[2020-01-02 05:43] LABS: Anion Gap 14 mmol/L (10-20); BUN (Urea Nitrogen) 27 mg/dL (9.8-20.1); Calc. Creatinine Clearance 34 mL/min (70-130); Calcium 9.3 mg/dL (7.8-10.44); Carbon Dioxide 25 mmol/L (23-31); Chloride 106 mmol/L (98-107); Estimated GFR-MDRD 41; Glucose 83 mg/dL (83-110); Potassium 4.3 mmol/L (3.5-5.1); Sodium 141 mmol/L (136-145)
[2020-01-02 05:49] LABS: Troponin I 0.733 ng/mL (< 0.028)
[2020-01-02] MEDS ORDERED: Levothyroxine Sodium 50 MCG TAB PO SCH (06:00)
[2020-01-02] MEDS ORDERED: Enoxaparin Sodium 60 MG/0.6 ML SYRINGE SC SCH ×2 (06:35→09:00)
[2020-01-02] MEDS ORDERED: metFORMIN 500 MG TAB PO SCH (08:00)
[2020-01-02] MEDS ORDERED: Nitroglycerin 0.4 MG TAB 1 EACH SL PRN (08:27)
[2020-01-02] MEDS ORDERED: Non-Formulary Item 1 EACH (Ferrous Sulfate [Iron] 325 MG) PO SCH (08:30)
[2020-01-02] MEDS ORDERED: Enoxaparin Sodium 40 MG/0.4 ML SYRINGE SC SCH (09:00)
[2020-01-02] MEDS ORDERED: Cholecalciferol 1,000 UNITS (25 MCG) TAB PO SCH (09:00)
[2020-01-02] MEDS ORDERED: Non-Formulary Item 1 EACH (Cholecalciferol (Vitamin D3) [Vitamin D3] 1,000 UNIT) PO SCH (09:00)
[2020-01-02] MEDS ORDERED: Aspirin 81 mg Enteric Coated Tablet PO SCH (09:00)
[2020-01-02] MEDS: Aspirin 81 mg Enteric Coated Tablet PO SCH (09:51)
[2020-01-02] MEDS: Cholecalciferol 1,000 UNITS (25 MCG) TAB PO SCH ×2 (09:51→21:39)
[2020-01-02] MEDS: Levothyroxine Sodium 50 MCG TAB PO SCH (09:52)
[2020-01-02] MEDS: Gabapentin 300 MG CAP PO SCH ×3 (09:52→21:38)
[2020-01-02] MEDS: Enoxaparin Sodium 80 MG/0.8 ML SYRINGE SC SCH ×2 (09:52→21:40)
[2020-01-02] MEDS: metFORMIN 500 MG TAB PO SCH ×2 (09:52→21:40)
[2020-01-02] MEDS: Pantoprazole 40 MG GRANULES PACKET PO SCH (09:54)
[2020-01-02 12:44] LABS: SARS-CoV-2 MS2 Positive; SARS-CoV-2 N Gene Negative; SARS-CoV-2 S Gene Negative; SARS-CoV-2 by NAA Not Detected (NotDetected); SARS-CoV-2 orf1ab Negative
[2020-01-02] MEDS: Communication Order-Pharmacy FS SCH (16:38)
[2020-01-02] MEDS ORDERED: Rosuvastatin 10 MG TAB PO SCH (21:00)
[2020-01-02] MEDS: Allopurinol 300 MG TAB PO SCH (21:38)
[2020-01-02] MEDS: Rosuvastatin 20 MG TAB PO SCH (21:39)
[2020-01-02] MEDS: NIFEdipine XL 30 MG TAB PO SCH (21:39)
[2020-01-02] MEDS: Lisinopril 10 MG TAB PO SCH (21:40)
--- NOTE | 2020-01-03 05:39 | PDOC.FM ---
- Subjective Subjective: Sleeping comfortably this morning. Going for a cath later this morning. Reports good PO intake yesterday. Denies chest pain, SOB, N/V. Last BM days ago, would like miralax. - Objective MAR Reviewed: Yes Vital Signs & Weight: Vital Signs (12 hours) Temp Pulse Resp BP Pulse Ox 01/03/20 04:35 62 18 134/65 98 01/02/20 21:40 147/65 H 01/02/20 21:39 75 147/65 H 01/02/20 20:30 98.2 F 75 18 147/65 H 98 Weight Weight 64.909 kg I&O: 01/01/20 01/02/20 01/03/20 06:59 06:59 06:59 Intake Total 600 900 Output Total 800 600 Balance -200 300 Result Diagrams: 01/03/20 05:40 01/03/20 05:47 EKG Reviewed by me: Yes (NS 1st degree AV block BBB) Phys Exam - Physical Examination Constitutional: NAD Respiratory: no wheezing, no rales, no rhonchi, clear to auscultation bilateral Cardiovascular: RRR, no significant murmur, no rub Gastrointestinal: soft, non-tender, no distention, positive bowel sounds Musculoskeletal: no edema Neurological: non-focal, normal sensation Dx/Plan - Plan Plan: Chest pain 2/2 to ACS vs. GI vs. 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
[2020-01-03 05:57] LABS: #Basophils 0.1 thou/uL (0.0-0.2); #Eosinphils 0.2 thou/uL (0.0-0.7); #Lymphocytes 2.3 thou/uL (1.20-3.40); #Monocytes 0.8 thou/uL (0.11-0.59); #Neutrophils 3.9 thou/uL (1.40-6.50); %Basophils 1.2 % (0.0-1.0); %Eosinophils 2.4 % (0.0-10.0); %Lymphocytes 32.2 % (21.0-51.0); %Monocytes 11.3 % (0.0-10.0); %Neutrophils 52.9 % (42.0-75.0); Hemoglobin 10.5 g/dL (12.0-16.0); Mean Corpuscular HGB CONC 32.8 g/dL (32.0-36.0); Mean Corpuscular Hemoglobin 33.1 pg (27.0-31.0); Mean Platelet Volume 7.8 fL (7.4-10.4); Platelet Count 167 thou/uL (130-400); RBC Distribution Width 13.1 % (11.5-14.5); Red Blood Cell (RBC) Count 3.16 mill/uL (4.20-5.40); White Blood Cell (WBC) Count 7.3 thou/uL (4.8-10.8)
[2020-01-03] MEDS ORDERED: Sodium Chloride 0.9% 1,000 ML IV SCH (06:00)
[2020-01-03] MEDS: Levothyroxine Sodium 50 MCG TAB PO SCH (06:00)
[2020-01-03] MEDS: Aspirin 81 mg Enteric Coated Tablet PO SCH (06:00)
[2020-01-03] MEDS: Gabapentin 300 MG CAP PO SCH ×3 (06:00→19:41)
[2020-01-03 06:17] LABS: Anion Gap 14 mmol/L (10-20); BUN (Urea Nitrogen) 30 mg/dL (9.8-20.1); Calc. Creatinine Clearance 33 mL/min (70-130); Calcium 9.3 mg/dL (7.8-10.44); Carbon Dioxide 26 mmol/L (23-31); Chloride 106 mmol/L (98-107); Estimated GFR-MDRD 40; Glucose 90 mg/dL (83-110); Potassium 4.6 mmol/L (3.5-5.1); Sodium 141 mmol/L (136-145)
[2020-01-03] MEDS ORDERED: Ferrous Sulfate 325 MG TAB PO SCH (08:00)
[2020-01-03] MEDS: Ferrous Sulfate 325 MG TAB PO SCH (08:12)
[2020-01-03] MEDS: Insulin Glargine 26 UNITS in Pre-Filled Syringe 1 EACH SC SCH (08:12)
[2020-01-03] MEDS: Cholecalciferol 1,000 UNITS (25 MCG) TAB PO SCH ×2 (08:12→19:42)
[2020-01-03] MEDS: Communication Order-Pharmacy FS SCH (08:13)
[2020-01-03] MEDS: metFORMIN 500 MG TAB PO SCH ×2 (08:13→19:42)
[2020-01-03] MEDS: Pantoprazole 40 MG GRANULES PACKET PO SCH (08:15)
[2020-01-03] MEDS ORDERED: Lidocaine 1% (PF) 30 ML VIAL ONE (08:26)
[2020-01-03] MEDS ORDERED: Nitroglycerin 0.4 MG TAB (25 Tab Bottle) SL PRN (10:59)
[2020-01-03] MEDS ORDERED: Acetaminophen/Codeine 30-300mg Tablet PO PRN ×2 (10:59)
[2020-01-03] MEDS ORDERED: Sodium Chloride 0.9% 200 ML IV PRN (10:59)
[2020-01-03] MEDS ORDERED: Iopamidol 370 76% 100 ML VIAL ONE (12:08)
--- NOTE | 2020-01-03 15:39 | CON ---
DATE OF CONSULTATION: REASON FOR CONSULTATION: Psw-MX-roarazrzp myocardial infarction. HISTORY OF PRESENT ILLNESS: Ms. Mcdaniel is an 84-year-old woman who has a relatively complex cardiac history as will be outlined below, presented with a non-ST elevation myocardial infarction. Jonas has a long history of coronary artery disease. She had a history of bypass surgery x4 in 1994. She has undergone multiple procedures from a coronary standpoint, but ultimately did undergo stent implantation in the right coronary artery bypass graft and repeat stenting in 02/2013. She had a patent internal mammary artery to the LAD and a diffusely diseased circumflex, not amenable to any further percutaneous treatment. 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 An angiogram was done through the right revealed she had a widely patent right coronary graft and it appeared that in retrospect the patient's pain was related to doses of hydralazine. She had underwent cardiac catheterization in 2013, had patent graft to the right coronary with good flow, internal mammary with good flow, diffuse disease in the obtuse marginal system. The previous stents in the right coronary artery are a 3.5 x 26 Resolute Integrity drug-coated stent, 3.5 x 16 to overlap, and then 3.5 more proximally. FilterWire was used. In 2012, she also had a 3.5 x 18 stent. The patient ultimately had increasing chest pain and was found to have worsening aortic stenosis, underwent repeat catheterization in 02/2017. At that time, she was found to have 3-vessel disease, patent LAD and ACEVEDO graft, diffusely diseased obtuse marginal system, not amenable to therapy. The patent vein graft to the right with a 50% stenosis. It was decided that she was really not a good candidate for repeat bypass surgery as she is relatively frail. Therefore, she underwent transcutaneous aortic valve replacement with an excellent result. The patient has done well up until this admission when she had prolonged episode of chest pressure yesterday, ultimately came to the hospital, found to have a peak troponin of 0.220, then 0.733. Creatinine 1.24. The patient is resting comfortably now, just feels "jittery in her chest sometimes." CURRENT MEDICATIONS: She is on: 1. Metformin. 2. Aspirin. 3. Rosuvastatin. 4. Nifedipine long-acting 30 mg a day. 5. Lisinopril. REVIEW OF SYSTEMS: CONSTITUTIONAL: No significant weight gain or loss. VISION: No changes. HEARING: No changes. PULMONARY: No cough or wheezing. GASTROINTESTINAL: No nausea, vomiting, or diarrhea. SKIN: No rashes. NEUROLOGIC: No unilateral weakness or numbness. PSYCHIATRIC: No unusual depression or anxiety. PHYSICAL EXAMINATION: GENERAL: This is a somewhat fragile-appearing 84-year-old woman, 5 feet 7 inches tall, 143 pounds, blood pressure 140/60, and pulse 80. LUNGS: Clear. CARDIAC: Normal S1 and normal S2. ABDOMEN: Soft and nontender. EXTREMITIES: Warm and dry. No clubbing or cyanosis. There is no edema. NEUROLOGIC: She is alert and oriented. PERTINENT LABORATORY DATA: Troponin up to 0.733. EKG reveals incomplete left bundle-branch block. ASSESSMENT: 1. Pfi-CR-kqlzqheml myocardial infarction. 2. Previous transcutaneous aortic valve replacement. 3. Previous stent implantations. 4. Previous bypass as outlined above. 5. Coronary artery disease. PLAN: Would recommend proceeding back to the laborer cheesemaking. Discussed risk of stroke, heart attack, iodine allergy, interfering the blood supply to leg or kidney, stent thrombosis, stent restenosis. She understands and wished to proceed. May not visualize the coronary artery knik depending on how difficult this is to do with the transcutaneous valve in place, it is really not necessary to visualize the knik coronaries as she is graft dependent in all 3 distributions. Job ID: [id number]
[2020-01-03] MEDS ORDERED: Insulin Regular 300 UNITS/3 ML VIAL ONE (16:35)
[2020-01-03] MEDS: Lisinopril 10 MG TAB PO SCH (19:41)
[2020-01-03] MEDS: NIFEdipine XL 30 MG TAB PO SCH (19:42)
[2020-01-03] MEDS: Rosuvastatin 20 MG TAB PO SCH (19:42)
[2020-01-03] MEDS: Allopurinol 300 MG TAB PO SCH (19:42)
--- NOTE | 2020-01-04 05:46 | PDOC.FM ---
- Subjective Subjective: No acute events overnight. Denies chest pain, SOB, N/V. Reports that she was told she would be able to go home this morning. - Objective MAR Reviewed: Yes Vital Signs & Weight: Vital Signs (12 hours) Temp Pulse Resp BP BP BP Pulse Ox 01/04/20 03:06 97.6 F 59 L 18 137/64 97 01/03/20 20:00 99 01/03/20 19:42 51 L 131/60 01/03/20 19:41 131/60 01/03/20 19:36 98.0 F 51 L 20 131/60 99 Weight Weight 66.451 kg I&O: 01/02/20 01/03/20 01/04/20 06:59 06:59 06:59 Intake Total 185 782 3582 Output Total 800 600 900 Balance -200 300 550 Result Diagrams: 01/04/20 07:50 01/04/20 07:50 EKG Reviewed by me: Yes (SR BBB) Phys Exam - Physical Examination Constitutional: NAD Neck: supple, full ROM Respiratory: no wheezing, no rales, no rhonchi, clear to auscultation bilateral Cardiovascular: RRR, no significant murmur, no rub Gastrointestinal: soft, non-tender, no distention, positive bowel sounds Musculoskeletal: no edema Neurological: moves all 4 limbs Psychiatric: normal affect Dx/Plan - Plan Plan: NSTEMI -extensive cardic history, echo in 2019 showed EF 55% -EKG: old LBBB, prolonged QRS, questionable ST elevations V1/2 -s/p asa and nitro in ED -chest pain has resolved -trop: 0.019 > 0.220 > 0.733 -on tele -card consulted (01/02); cath: 3 vessel dz seen on prev cath, 50-55% stenosis in RCA graft in mid area of SVG, medical management; TTE: EF of 55-60% 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
[2020-01-04 07:56] LABS: #Basophils 0.1 thou/uL (0.0-0.2); #Eosinphils 0.1 thou/uL (0.0-0.7); #Lymphocytes 2.5 thou/uL (1.20-3.40); #Monocytes 1.1 thou/uL (0.11-0.59); #Neutrophils 5.1 thou/uL (1.40-6.50); %Basophils 0.6 % (0.0-1.0); %Eosinophils 1.2 % (0.0-10.0); %Lymphocytes 28.8 % (21.0-51.0); %Neutrophils 57.4 % (42.0-75.0); Hemoglobin 10.4 g/dL (12.0-16.0); Mean Corpuscular HGB CONC 32.6 g/dL (32.0-36.0); Mean Corpuscular Hemoglobin 33.6 pg (27.0-31.0); Mean Platelet Volume 7.8 fL (7.4-10.4); Platelet Count 155 thou/uL (130-400); RBC Distribution Width 12.9 % (11.5-14.5); Red Blood Cell (RBC) Count 3.08 mill/uL (4.20-5.40); White Blood Cell (WBC) Count 8.8 thou/uL (4.8-10.8)
[2020-01-04 08:23] LABS: Anion Gap 12 mmol/L (10-20); BUN (Urea Nitrogen) 30 mg/dL (9.8-20.1); Calc. Creatinine Clearance 36 mL/min (70-130); Carbon Dioxide 26 mmol/L (23-31); Chloride 107 mmol/L (98-107); Estimated GFR-MDRD 43; Glucose 94 mg/dL (83-110); Potassium 4.4 mmol/L (3.5-5.1); Sodium 141 mmol/L (136-145)
[2020-01-04] MEDS ORDERED: Folic Acid 1 MG TAB PO SCH (09:00)
[2020-01-04] MEDS: metFORMIN 500 MG TAB PO SCH (09:07)
[2020-01-04] MEDS: Levothyroxine Sodium 50 MCG TAB PO SCH (09:07)
[2020-01-04] MEDS: Cholecalciferol 1,000 UNITS (25 MCG) TAB PO SCH (09:07)
[2020-01-04] MEDS: Ferrous Sulfate 325 MG TAB PO SCH (09:07)
[2020-01-04] MEDS: Pantoprazole 40 MG GRANULES PACKET PO SCH (09:07)
[2020-01-04] MEDS: Aspirin 81 mg Enteric Coated Tablet PO SCH (09:07)
[2020-01-04] MEDS: Gabapentin 300 MG CAP PO SCH (09:07)
[2020-01-04] MEDS: Insulin Glargine 26 UNITS in Pre-Filled Syringe 1 EACH SC SCH (09:08)
--- NOTE | 2020-01-04 11:55 | PRG ---
DATE OF SERVICE: 01/04/2020 Ms. Seay is sitting quietly in her chair, in no distress. She did have her heart cath yesterday and does have, of course, coronary artery disease, which Dr. Cross feels can be treated medically. She is therefore ready for discharge later this afternoon with medications as adjusted per Cardiology. Job ID: [id number]
[2020-01-04 12:25] VITALS: BP 134/64; TEMP 98.1
--- NOTE | 2020-01-04 12:51 | PRG ---
DATE OF SERVICE: 01/04/2020 SUBJECTIVE: Ms. Seay is going to be released home today. She is not going to be put on a beta-rolan due to bradycardia. She is not going to be put on dual antiplatelet drugs due to iron-deficiency anemia. She is going home on nifedipine 30 mg a day, lisinopril 10 mg a day, Rosuvastatin 20 mg a day, aspirin 81 mg a day. She will follow up in the office in 2 to 3 weeks. Job ID: [id number]
--- NOTE | 2020-01-05 01:03 | DIS ---
DATE OF ADMISSION: 01/03/2020 DATE OF DISCHARGE: 01/04/2020 RESIDENT: Christa Kruger MD ADMITTING ATTENDING: Wendy Sinha MD DISCHARGE ATTENDING: Colton Patel MD CONSULTS: Cardiology, Dr. Cross. PROCEDURES/IMAGES: 1. Chest x-ray, no acute cardiopulmonary process. Atherosclerosis. 2. cath lab technologist physician report, 3-vessel coronary artery disease with occluded LAD, circumflex, RCA documented on previous cath. Patent ACEVEDO to LAD. Recently occluded SVG to OM and small distal vessel. Patent SVG to RCA, 50% to 55% stenosis in the RCA graft proximal, distant, and mid area of SVG. 3. Echocardiogram report, left ventricle size normal. Ejection fraction estimated at 55% to 60%. Transcutaneous aortic valve prosthesis in place. No aortic insufficiency. Peak gradient demonstrated across aortic valve under 16 mmHg. Left atrium is mild to moderate dilated. No evidence of mitral regurgitation. No evidence of mitral valve stenosis. PRIMARY DIAGNOSIS: Ltp-AX-xgrxtwqfy myocardial infarction. SECONDARY DIAGNOSES: 1. Acute kidney injury on chronic kidney disease. 2. Hypertension. 3. Anemia. 4. Type 2 diabetes. 5. Gout. 6. Hypothyroid. 7. Gastroesophageal reflux disease. DISCHARGE MEDICATIONS: 1. Vitamin D3 1000 units p.o. b.i.d. 2. Metformin 500 mg p.o. b.i.d. 3. Levothyroxine 500 mcg p.o. daily. 4. Insulin 26 units subcutaneous q.a.m. 5. Nitroglycerin 0.4 mg sublingual p.r.n. 6. Aspirin 81 mg p.o. daily. 7. Iron 325 mg p.o. 8. Allopurinol 300 mg p.o. h.s. 9. Rosuvastatin 20 mg p.o. h.s. 10. Gabapentin 300 mg p.o. t.i.d. 11. Protonix 40 mg p.o. daily. 12. Nifedipine 30 mg p.o. h.s. 13. Lisinopril 10 mg p.o. h.s. DISCONTINUED MEDICATIONS: None. HISTORY OF PRESENT ILLNESS/HOSPITAL COURSE: The patient is an 84-year-old female with significant cardiac history who came to ED for chest tightness after no relief with taking nitro at home. The pain radiated into her left arm. The patient's troponins were initially negative at 0.019. However, due to continued chest pain, we trended the troponins which trended from 0.019 to 0.220, and then to 0.733. At this time, she did not have any changes in her EKG. The EKG did show a left bundle branch block and some ST elevation in V1 to V2; however, this was comparable to an EKG in 2019. We consulted the patient's electrical systems design engineer, Dr. Cross, for concern that the patient may need to return to the lab engineer. Dr. Cross took the patient for cath on 01/02 and also performed an echo on the same day. The results were reported above. On day of discharge, the patient was stable and her chest pain had resolved. Both Dr. Cross and the Family Medicine Team believed the patient was stable for discharge on her original home medications. The beta rolan was held due to bradycardia, and the patient was not sent home on dual antiplatelet therapy due to iron-deficiency anemia. DISPOSITION: Stable. DISCHARGE INSTRUCTIONS: Location: Home. Activity: As tolerated. Diet: Heart healthy, diabetic. Followup: Follow up with Cardiology, Dr. Cross, in 2 to 3 weeks, PCP, Dr. Huitron, on 01/09 at 10:30 a.m. Job ID: [id number]
== END 2020-01-04 14:05 | disposition home or self-care (01) | DRG 281 ==
LOC: ERS 20:01 → 2SW 22:23 → OBSVTOIN 01-03 10:38
PROVIDERS: ADMIT Family Medicine; ATTEND Family Medicine
PROC: B2111ZZ Fluoroscopy of Multiple Coronary Arteries using Low Osmolar Contrast (ICD-10-PCS; principal; 2020-01-03)
DX: I21.4 Non-ST elevation (NSTEMI) myocardial infarction (principal); N17.9 Acute kidney failure, unspecified; I12.9 Hypertensive chronic kidney disease with stage 1 through stage 4 chronic kidney disease, or unspecified chronic kidney disease; E11.22 Type 2 diabetes mellitus with diabetic chronic kidney disease; M10.9 Gout, unspecified; D63.1 Anemia in chronic kidney disease; E03.9 Hypothyroidism, unspecified; K21.9 Gastro-esophageal reflux disease without esophagitis; N18.9 Chronic kidney disease, unspecified; D50.9 Iron deficiency anemia, unspecified; I48.91 Unspecified atrial fibrillation; I25.10 Atherosclerotic heart disease of native coronary artery without angina pectoris; E78.00 Pure hypercholesterolemia, unspecified; J42 Unspecified chronic bronchitis; F17.210 Nicotine dependence, cigarettes, uncomplicated; I44.7 Left bundle-branch block, unspecified; R00.1 Bradycardia, unspecified; Z88.8 Allergy status to other drugs, medicaments and biological substances; Z79.4 Long term (current) use of insulin; Z79.890 Hormone replacement therapy; Z79.899 Other long term (current) drug therapy; Z95.2 Presence of prosthetic heart valve; Z90.49 Acquired absence of other specified parts of digestive tract; Z90.710 Acquired absence of both cervix and uterus; Z79.82 Long term (current) use of aspirin
CPT/HCPCS: 36415; 36416; 71045; 76942; 80048; 80053; 82607; 82746; 84484; 85025; 87635; 93005; 93010; 93306; 93454; 96374; J1644; J1650; J1815; J2001; J2270; Q9967; U0003

== ENCOUNTER 2020-07-10 21:33 | Inpatient (IN) | payer MEDICARE ==
[~2020-07-10 21:33] MED LIST changes: -Iopamidol 370 76% 100 ML VIAL ONE; +Iopamidol-370 76% 500 ML 1 ML ONE
[2020-07-10] MEDS ORDERED: Ondansetron PF 4 MG/2 ML Vial ONE ×2 (21:38→22:29)
[2020-07-10 22:33] LABS: Bilirubin Negative (Negative); Blood, Urine Negative (Negative); Clarity Clear (Clear); Glucose, Urine (Dipstick) Negative (Negative); Ketone, Urine Negative (Negative); Leukocyte Negative (Negative); Nitrite Negative (Negative); Protein, Urine (Dipstick) Trace mg/dL (Neg-Trace); Urobilinogen 0.2 mg/dL (Less than 2); pH, Urine 6.5 (5.0-9.0)
[2020-07-10 22:41] LABS: Hemoglobin 12.9 g/dL (12.0-16.0); Mean Corpuscular HGB CONC 33.4 g/dL (32.0-36.0); Mean Corpuscular Hemoglobin 34.1 pg (27.0-31.0); Platelet Count 198 thou/uL (130-400); RBC Distribution Width 13.3 % (11.5-14.5); Red Blood Cell (RBC) Count 3.79 mill/uL (4.20-5.40); White Blood Cell (WBC) Count 13.5 thou/uL (4.8-10.8)
[2020-07-10 22:58] LABS: Band 16 % (5-11); Lymphocytes 3 % (21-51); MDiff Complete? YES; Monocytes 12 % (0-10); Neutrophil 69 % (42-75); Platelet Morphology Comment Appears Adequate; RBC Morphology Normal
[2020-07-10 23:00] LABS: Prothrombin Time 13.6 sec (12.0-14.7)
[2020-07-10 23:01] LABS: PTT 20.4 sec (22.9-36.1)
[2020-07-10 23:01] LABS: ALT (SGPT) 29 U/L (8-55); AST (SGOT) 21 U/L (5-34); Albumin 4.2 g/dL (3.4-4.8); Alkaline Phosphatase 66 U/L (40-110); Anion Gap 18 mmol/L (10-20); BUN (Urea Nitrogen) 21 mg/dL (9.8-20.1); Bilirubin, Total 0.4 mg/dL (0.2-1.2); CK (CPK) 65 U/L (29-168); Calc. Creatinine Clearance 0 mL/min (70-130); Calcium 9.5 mg/dL (7.8-10.44); Carbon Dioxide 22 mmol/L (23-31); Chloride 104 mmol/L (98-107); Globulin 3.2 g/dL (2.4-3.5); Glucose 91 mg/dL (83-110); Lipase 27 U/L (8-78); Potassium 4.1 mmol/L (3.5-5.1); Protein, Total 7.4 g/dL (5.8-8.1); Sodium 140 mmol/L (136-145)
[2020-07-10 23:21] LABS: CKMB 2.4 ng/mL (0-6.6)
[2020-07-11] MEDS ORDERED: Morphine 4 MG/ML VIAL ONE (00:39)
[2020-07-11] MEDS ORDERED: Aspirin Chewable 81 MG TAB ONE (00:39)
[2020-07-11 01:32] LABS: Troponin I 0.086 ng/mL (< 0.028)
[2020-07-11 01:48] LABS: Lactic Acid 1.1 mmol/L (0.5-2.2)
[2020-07-11] MEDS ORDERED: Acetaminophen 325 MG TAB PO PRN (02:06)
[2020-07-11] MEDS ORDERED: Labetalol HCl 100 MG/20 ML VIAL SLOW IVP PRN (02:06)
[2020-07-11] MEDS ORDERED: HumaLOG 300 UNITS/3 ML VIAL SC PRN (02:16)
[2020-07-11] MEDS ORDERED: Dextrose 50% Abboject 50 ML SYRINGE SLOW IVP PRN (02:16)
[2020-07-11] MEDS ORDERED: Dextrose 5% in Water 1,000 ML IV PRN (02:16)
[2020-07-11 04:17] VITALS: BMI 21.8
[2020-07-11 04:45] LABS: #Lymphocytes 0.3 thou/uL (1.20-3.40); #Monocytes 1.1 thou/uL (0.11-0.59); #Neutrophils 10.9 thou/uL (1.40-6.50); %Eosinophils 0.2 % (0.0-10.0); %Lymphocytes 2.2 % (21.0-51.0); %Monocytes 9.2 % (0.0-10.0); %Neutrophils 88.5 % (42.0-75.0); Mean Corpuscular HGB CONC 33.3 g/dL (32.0-36.0); Mean Corpuscular Hemoglobin 33.6 pg (27.0-31.0); Mean Platelet Volume 7.5 fL (7.4-10.4); Platelet Count 186 thou/uL (130-400); RBC Distribution Width 13.3 % (11.5-14.5); Red Blood Cell (RBC) Count 3.26 mill/uL (4.20-5.40); White Blood Cell (WBC) Count 12.3 thou/uL (4.8-10.8)
[2020-07-11 05:01] LABS: ALT (SGPT) 25 U/L (8-55); AST (SGOT) 21 U/L (5-34); Albumin 3.5 g/dL (3.4-4.8); Alkaline Phosphatase 54 U/L (40-110); Anion Gap 12 mmol/L (10-20); BUN (Urea Nitrogen) 25 mg/dL (9.8-20.1); Bilirubin, Total 0.4 mg/dL (0.2-1.2); Calc. Creatinine Clearance 34 mL/min (70-130); Calcium 8.6 mg/dL (7.8-10.44); Carbon Dioxide 24 mmol/L (23-31); Cardiac Risk 2.9 (Less than 4.5); Chloride 107 mmol/L (98-107); Cholesterol 109 mg/dl (< 200 Desired); Globulin 2.7 g/dL (2.4-3.5); Glucose 104 mg/dL (83-110); HDL Cholesterol 37 mg/dL (>60 Neg Risk); LDL Cholesterol, Calculated 63 mg/dL; Potassium 4.3 mmol/L (3.5-5.1); Protein, Total 6.2 g/dL (5.8-8.1); Sodium 139 mmol/L (136-145); Triglycerides 47 mg/dL (Less than 150)
[2020-07-11 05:13] LABS: Troponin I 0.359 ng/mL (< 0.028)
[2020-07-11] MEDS ORDERED: Lactated Ringer's 1,000 ML IV SCH (07:30)
[2020-07-11 08:35] LABS: SARS-CoV-2 PCR by NAA Not Detected (NotDetected)
[2020-07-11] MEDS: Aspirin 81 mg Enteric Coated Tablet PO SCH (08:42)
[2020-07-11] MEDS ORDERED: Enoxaparin Sodium 40 MG/0.4 ML SYRINGE SC SCH (09:00)
[2020-07-11] MEDS ORDERED: Non-Formulary Item 1 EACH (Ferrous Sulfate [Iron] 325 MG Tablet) PO SCH (11:15)
[2020-07-11] MEDS ORDERED: Ferrous Sulfate 325 MG TAB PO SCH ×2 (11:30→12:00)
[2020-07-11] MEDS ORDERED: Famotidine 20 MG TAB PO SCH (11:45)
[2020-07-11 12:14] LABS: Troponin I 0.563 ng/mL (< 0.028)
[2020-07-11] MEDS ORDERED: Nitroglycerin 2% Ointment 1 INCH/1 GM Packet TOP PRN (12:32)
[2020-07-11] MEDS ORDERED: Aspirin 325 MG TAB PO SCH (12:45)
[2020-07-11] MEDS ORDERED: Aspirin Chewable 81 MG TAB PO SCH (13:00)
[2020-07-11] MEDS: Ondansetron ODT 4 MG TAB PO PRN ×2 (15:12→20:45)
[2020-07-11] MEDS: Nitroglycerin 0.4 MG TAB (25 Tab Bottle) SL PRN ×2 (15:13→21:09)
[2020-07-11] MEDS ORDERED: Nitroglycerin 2% Ointment 1 INCH/1 GM Packet TOP SCH (15:45)
[2020-07-11] MEDS ORDERED: Morphine 2 MG/ML VIAL SLOW IVP SCH (15:45)
[2020-07-11] MEDS ORDERED: Enoxaparin Sodium 60 MG/0.6 ML SYRINGE SC SCH (18:30)
[2020-07-11] MEDS: Allopurinol 300 MG TAB PO SCH (20:46)
[2020-07-11] MEDS: Lisinopril 10 MG TAB PO SCH (20:46)
[2020-07-11] MEDS: metFORMIN 500 MG TAB PO SCH (20:46)
[2020-07-11] MEDS: Rosuvastatin 10 MG TAB PO SCH (20:47)
[2020-07-11] MEDS: NIFEdipine XL 30 MG TAB PO SCH (20:47)
[2020-07-11] MEDS: Cholecalciferol 1,000 UNITS (25 MCG) TAB PO SCH (20:47)
[2020-07-11] MEDS ORDERED: Non-Formulary Item 1 EACH (Cholecalciferol (Vitamin D3) [Vitamin D3] 1000 UNIT Capsule) PO SCH (21:00)
[2020-07-11 22:47] LABS: Troponin I 1.423 ng/mL (< 0.028)
[2020-07-12] MEDS ORDERED: Nitroglycerin 2% Ointment 1 INCH/1 GM Packet TOP SCH (00:45)
[2020-07-12] MEDS: Nitroglycerin 0.4 MG TAB (25 Tab Bottle) SL PRN ×2 (02:09→23:59)
[2020-07-12] MEDS ORDERED: Nitroglycerin 50 MG/250 ML BOT 250 ML IVPB SCH (02:45)
[2020-07-12 04:07] LABS: Cardiac Risk 2.7 (Less than 4.5)
[2020-07-12] MEDS: Enoxaparin Sodium 60 MG/0.6 ML SYRINGE SC SCH ×2 (08:29→21:15)
[2020-07-12] MEDS: Levothyroxine Sodium 50 MCG TAB PO SCH (08:29)
[2020-07-12] MEDS: Aspirin 81 mg Enteric Coated Tablet PO SCH (08:29)
[2020-07-12] MEDS: Cholecalciferol 1,000 UNITS (25 MCG) TAB PO SCH ×2 (08:29→21:16)
[2020-07-12] MEDS: metFORMIN 500 MG TAB PO SCH ×2 (08:30→21:16)
[2020-07-12] MEDS: Ferrous Sulfate 325 MG TAB PO SCH (08:30)
[2020-07-12] MEDS: Lantus 1000 UNITS/10 ML VIAL SC SCH (08:30)
[2020-07-12] MEDS ORDERED: [UNRECOGNIZED DRUG - OTHER] SC SCH (09:00)
[2020-07-12] MEDS ORDERED: INSULIN GLARGINE HUM REC ANLOG SC SCH (09:00)
[2020-07-12 11:23] LABS: Hemoglobin 9.3 g/dL (12.0-16.0); Mean Corpuscular HGB CONC 34.9 g/dL (32.0-36.0); Mean Corpuscular Hemoglobin 34.7 pg (27.0-31.0); Mean Corpuscular Volume 99.3 fL (78.0-98.0); Mean Platelet Volume 8.3 fL (7.4-10.4); Platelet Count 140 thou/uL (130-400); RBC Distribution Width 13.1 % (11.5-14.5); Red Blood Cell (RBC) Count 2.67 mill/uL (4.20-5.40); White Blood Cell (WBC) Count 9.5 thou/uL (4.8-10.8)
[2020-07-12 11:29] LABS: Anion Gap 12 mmol/L (10-20); BUN (Urea Nitrogen) 31 mg/dL (9.8-20.1); Calc. Creatinine Clearance 35 mL/min (70-130); Calcium 7.4 mg/dL (7.8-10.44); Carbon Dioxide 26 mmol/L (23-31); Chloride 101 mmol/L (98-107); Glucose 78 mg/dL (83-110); Potassium 4.2 mmol/L (3.5-5.1); Sodium 135 mmol/L (136-145)
[2020-07-12 12:15] LABS: Band 38 % (5-11); Lymphocytes 12 % (21-51); MDiff Complete? YES; Monocytes 13 % (0-10); Neutrophil 35 % (42-75); Platelet Morphology Comment Appears Adequate; Polychromasia SLIGHT = 2-3 cells (100X) (0-2/hpf); Reactive Lymphocytes 2 % (0-10)
[2020-07-12] MEDS ORDERED: Communication Order-Pharmacy FS SCH (13:30)
[2020-07-12] MEDS: Ondansetron ODT 4 MG TAB PO PRN (17:24)
[2020-07-12] MEDS: NIFEdipine XL 30 MG TAB PO SCH (21:15)
[2020-07-12] MEDS: Allopurinol 300 MG TAB PO SCH (21:15)
[2020-07-12] MEDS: Lisinopril 10 MG TAB PO SCH (21:16)
[2020-07-12] MEDS: Rosuvastatin 10 MG TAB PO SCH (21:16)
[2020-07-13 05:38] LABS: #Eosinphils 0.1 thou/uL (0.0-0.7); #Lymphocytes 1.9 thou/uL (1.20-3.40); #Monocytes 1.3 thou/uL (0.11-0.59); #Neutrophils 5.7 thou/uL (1.40-6.50); %Eosinophils 0.9 % (0.0-10.0); %Lymphocytes 20.7 % (21.0-51.0); %Monocytes 14.6 % (0.0-10.0); %Neutrophils 63.8 % (42.0-75.0); Hemoglobin 9.7 g/dL (12.0-16.0); Mean Corpuscular HGB CONC 32.7 g/dL (32.0-36.0); Mean Corpuscular Hemoglobin 32.7 pg (27.0-31.0); Mean Corpuscular Volume 99.9 fL (78.0-98.0); Mean Platelet Volume 8.1 fL (7.4-10.4); Platelet Count 148 thou/uL (130-400); RBC Distribution Width 13.2 % (11.5-14.5); Red Blood Cell (RBC) Count 2.96 mill/uL (4.20-5.40)
[2020-07-13 05:57] LABS: Anion Gap 12 mmol/L (10-20); BUN (Urea Nitrogen) 29 mg/dL (9.8-20.1); Calc. Creatinine Clearance 39 mL/min (70-130); Carbon Dioxide 25 mmol/L (23-31); Chloride 107 mmol/L (98-107); Glucose 81 mg/dL (83-110); Potassium 3.8 mmol/L (3.5-5.1); Sodium 140 mmol/L (136-145)
[2020-07-13] MEDS ORDERED: Sodium Chloride 0.9% 1,000 ML IV SCH ×2 (06:00→08:33)
[2020-07-13] MEDS ORDERED: Lidocaine 1% (PF) 30 ML VIAL ONE (06:42)
[2020-07-13] MEDS ORDERED: Nitroglycerin 0.4 MG TAB (25 Tab Bottle) SL PRN (08:31)
[2020-07-13] MEDS ORDERED: Sodium Chloride 0.9% 200 ML IV PRN (08:31)
[2020-07-13] MEDS: Amiodarone 200 MG TAB PO SCH ×2 (12:43→21:34)
[2020-07-13] MEDS: Ondansetron ODT 4 MG TAB PO PRN (12:43)
[2020-07-13] MEDS: metFORMIN 500 MG TAB PO SCH ×2 (12:45→21:32)
[2020-07-13] MEDS: Levothyroxine Sodium 50 MCG TAB PO SCH (12:45)
[2020-07-13] MEDS: Ferrous Sulfate 325 MG TAB PO SCH (12:45)
[2020-07-13] MEDS: Lantus 1000 UNITS/10 ML VIAL SC SCH (12:45)
[2020-07-13] MEDS: Cholecalciferol 1,000 UNITS (25 MCG) TAB PO SCH ×2 (12:45→21:34)
[2020-07-13] MEDS: Aspirin 81 mg Enteric Coated Tablet PO SCH (12:45)
[2020-07-13] MEDS ORDERED: Iopamidol 370 76% 100 ML VIAL ONE (15:02)
[2020-07-13] MEDS: Rosuvastatin 10 MG TAB PO SCH (21:32)
[2020-07-13] MEDS: Allopurinol 300 MG TAB PO SCH (21:34)
[2020-07-13] MEDS: NIFEdipine XL 30 MG TAB PO SCH (21:34)
[2020-07-13] MEDS: Lisinopril 10 MG TAB PO SCH (21:34)
[2020-07-13] MEDS ORDERED: Calcium Carbonate 500 MG ChewTAB PO PRN (23:13)
[2020-07-14 05:19] LABS: #Eosinphils 0.1 thou/uL (0.0-0.7); #Lymphocytes 1.8 thou/uL (1.20-3.40); #Monocytes 1.2 thou/uL (0.11-0.59); #Neutrophils 9.3 thou/uL (1.40-6.50); %Basophils 0.1 % (0.0-1.0); %Lymphocytes 14.3 % (21.0-51.0); %Monocytes 9.7 % (0.0-10.0); %Neutrophils 74.9 % (42.0-75.0); Hemoglobin 9.7 g/dL (12.0-16.0); Mean Corpuscular HGB CONC 32.4 g/dL (32.0-36.0); Mean Corpuscular Hemoglobin 32.5 pg (27.0-31.0); Mean Platelet Volume 8.1 fL (7.4-10.4); Platelet Count 164 thou/uL (130-400); RBC Distribution Width 13.1 % (11.5-14.5); Red Blood Cell (RBC) Count 2.98 mill/uL (4.20-5.40); White Blood Cell (WBC) Count 12.4 thou/uL (4.8-10.8)
[2020-07-14 05:42] LABS: Anion Gap 13 mmol/L (10-20); BUN (Urea Nitrogen) 19 mg/dL (9.8-20.1); Calc. Creatinine Clearance 47 mL/min (70-130); Carbon Dioxide 21 mmol/L (23-31); Chloride 107 mmol/L (98-107); Glucose 118 mg/dL (83-110); Potassium 3.6 mmol/L (3.5-5.1); Sodium 137 mmol/L (136-145)
[2020-07-14] MEDS: Levothyroxine Sodium 50 MCG TAB PO SCH (08:35)
[2020-07-14] MEDS: Ferrous Sulfate 325 MG TAB PO SCH (08:35)
[2020-07-14] MEDS: metFORMIN 500 MG TAB PO SCH ×2 (08:35→21:44)
[2020-07-14] MEDS: Aspirin 81 mg Enteric Coated Tablet PO SCH (08:35)
[2020-07-14] MEDS: Cholecalciferol 1,000 UNITS (25 MCG) TAB PO SCH ×2 (08:35→21:44)
[2020-07-14] MEDS: Amiodarone 200 MG TAB PO SCH ×2 (08:35→21:44)
[2020-07-14] MEDS ORDERED: Apixaban 2.5 MG TAB PO SCH (11:45)
[2020-07-14] MEDS: Lantus 1000 UNITS/10 ML VIAL SC SCH (12:06)
[2020-07-14] MEDS: Lisinopril 10 MG TAB PO SCH (21:43)
[2020-07-14] MEDS: NIFEdipine XL 30 MG TAB PO SCH (21:44)
[2020-07-14] MEDS: Apixaban 5 MG TAB PO SCH (21:44)
[2020-07-15 04:51] LABS: #Eosinphils 0.1 thou/uL (0.0-0.7); #Lymphocytes 1.5 thou/uL (1.20-3.40); #Monocytes 1.2 thou/uL (0.11-0.59); #Neutrophils 10.3 thou/uL (1.40-6.50); %Basophils 0.1 % (0.0-1.0); %Eosinophils 0.7 % (0.0-10.0); %Lymphocytes 11.7 % (21.0-51.0); %Monocytes 9.4 % (0.0-10.0); %Neutrophils 78.2 % (42.0-75.0); Hemoglobin 10.1 g/dL (12.0-16.0); Mean Corpuscular HGB CONC 32.7 g/dL (32.0-36.0); Mean Corpuscular Hemoglobin 32.4 pg (27.0-31.0); Mean Corpuscular Volume 99.1 fL (78.0-98.0); Mean Platelet Volume 8.6 fL (7.4-10.4); Platelet Count 159 thou/uL (130-400); Red Blood Cell (RBC) Count 3.12 mill/uL (4.20-5.40); White Blood Cell (WBC) Count 13.1 thou/uL (4.8-10.8)
[2020-07-15 05:09] LABS: Anion Gap 15 mmol/L (10-20); BUN (Urea Nitrogen) 14 mg/dL (9.8-20.1); Calc. Creatinine Clearance 46 mL/min (70-130); Calcium 8.8 mg/dL (7.8-10.44); Carbon Dioxide 23 mmol/L (23-31); Chloride 105 mmol/L (98-107); Glucose 84 mg/dL (83-110); Potassium 3.7 mmol/L (3.5-5.1); Sodium 139 mmol/L (136-145)
[2020-07-15] MEDS: Amiodarone 200 MG TAB PO SCH (08:16)
[2020-07-15] MEDS: Apixaban 5 MG TAB PO SCH (08:16)
[2020-07-15] MEDS: Lantus 1000 UNITS/10 ML VIAL SC SCH (08:26)
[2020-07-15] MEDS: Cholecalciferol 1,000 UNITS (25 MCG) TAB PO SCH (08:27)
[2020-07-15] MEDS: Levothyroxine Sodium 50 MCG TAB PO SCH (08:27)
[2020-07-15] MEDS: metFORMIN 500 MG TAB PO SCH (08:27)
[2020-07-15] MEDS: Aspirin 81 mg Enteric Coated Tablet PO SCH (08:27)
[2020-07-15] MEDS: Allopurinol 300 MG TAB PO SCH (10:27)
[2020-07-15] MEDS: Rosuvastatin 10 MG TAB PO SCH (10:27)
[2020-07-15] MEDS ORDERED: Polyethylene Glycol 3350 17 GM Packet PO PRN (10:59)
[2020-07-15 11:59] VITALS: TEMP 97.5
[2020-07-15 15:18] VITALS: BP 119/53
[2020-07-16] MEDS ORDERED: Amiodarone 200 MG TAB PO SCH (09:00)
== END 2020-07-15 15:44 | disposition home or self-care (01) | DRG 281 ==
LOC: ERS 21:33 → 2SE 07-11 02:21 → CCU 07-12 03:28 → IMCU/EMU 07-13 01:50 → 2NO 07-13 20:11
PROVIDERS: ADMIT Emergency Medicine; ATTEND Family Medicine
PROC: 4A023N7 Measurement of Cardiac Sampling and Pressure, Left Heart, Percutaneous Approach (ICD-10-PCS; principal; 2020-07-11)
PROC: B2131ZZ Fluoroscopy of Multiple Coronary Artery Bypass Grafts using Low Osmolar Contrast (ICD-10-PCS; 2020-07-11)
PROC: B2111ZZ Fluoroscopy of Multiple Coronary Arteries using Low Osmolar Contrast (ICD-10-PCS; 2020-07-11)
PROC: B2181ZZ Fluoroscopy of Left Internal Mammary Bypass Graft using Low Osmolar Contrast (ICD-10-PCS; 2020-07-11)
DX: T82.855A Stenosis of coronary artery stent, initial encounter (principal); I21.A1 Myocardial infarction type 2; I16.1 Hypertensive emergency; G45.9 Transient cerebral ischemic attack, unspecified; R29.810 Facial weakness; I25.10 Atherosclerotic heart disease of native coronary artery without angina pectoris; E11.9 Type 2 diabetes mellitus without complications; I10 Essential (primary) hypertension; E03.9 Hypothyroidism, unspecified; K21.9 Gastro-esophageal reflux disease without esophagitis; K52.9 Noninfective gastroenteritis and colitis, unspecified; I65.22 Occlusion and stenosis of left carotid artery; Y84.0 Cardiac catheterization as the cause of abnormal reaction of the patient, or of later complication, without mention of misadventure at the time of the procedure; I73.9 Peripheral vascular disease, unspecified; E78.5 Hyperlipidemia, unspecified; Z95.1 Presence of aortocoronary bypass graft; Z90.49 Acquired absence of other specified parts of digestive tract; Z90.710 Acquired absence of both cervix and uterus; Z95.2 Presence of prosthetic heart valve; Z88.8 Allergy status to other drugs, medicaments and biological substances; Z79.4 Long term (current) use of insulin; Z79.82 Long term (current) use of aspirin
CPT/HCPCS: 36415; 36416; 51702; 70450; 70496; 70498; 70551; 71045; 74176; 76942; 80048; 80053; 80061; 81003; 82274; 82550; 82553; 83605; 83690; 83880; 84484; 85025; 85610; 85730; 86850; 86900; 86901; 87040; 87635; 93005; 93010; 93455; 93798; 94760; 96374; 96375; 99152; 99153; J1650; J1815; J2001; J2270; J2405; Q0162; Q9967; U0003; U0005

== ENCOUNTER 2020-08-27 14:21 | Inpatient (IN) | payer MEDICARE ==
[2020-08-27 14:57] LABS: #Lymphocytes 1.4 thou/uL (1.20-3.40); #Neutrophils 7.4 thou/uL (1.40-6.50); %Basophils 0.3 % (0.0-1.0); %Eosinophils 0.3 % (0.0-10.0); %Lymphocytes 14.5 % (21.0-51.0); %Monocytes 10.1 % (0.0-10.0); %Neutrophils 74.8 % (42.0-75.0); Hemoglobin 10.1 g/dL (12.0-16.0); Mean Corpuscular HGB CONC 32.6 g/dL (32.0-36.0); Mean Corpuscular Hemoglobin 33.1 pg (27.0-31.0); Mean Platelet Volume 7.5 fL (7.4-10.4); Platelet Count 253 thou/uL (130-400); RBC Distribution Width 14.3 % (11.5-14.5); Red Blood Cell (RBC) Count 3.04 mill/uL (4.20-5.40); White Blood Cell (WBC) Count 9.9 thou/uL (4.8-10.8)
[2020-08-27 15:12] LABS: ALT (SGPT) 19 U/L (8-55); AST (SGOT) 17 U/L (5-34); Albumin 3.9 g/dL (3.4-4.8); Alkaline Phosphatase 60 U/L (40-110); Anion Gap 17 mmol/L (10-20); BUN (Urea Nitrogen) 23 mg/dL (9.8-20.1); Bilirubin, Total 0.2 mg/dL (0.2-1.2); CK (CPK) 55 U/L (29-168); Calc. Creatinine Clearance 0 mL/min (70-130); Calcium 9.6 mg/dL (7.8-10.44); Carbon Dioxide 21 mmol/L (23-31); Chloride 96 mmol/L (98-107); Globulin 2.9 g/dL (2.4-3.5); Glucose 140 mg/dL (83-110); Lipase 24 U/L (8-78); Potassium 4.8 mmol/L (3.5-5.1); Protein, Total 6.8 g/dL (5.8-8.1); Sodium 129 mmol/L (136-145)
[2020-08-27] MEDS ORDERED: Aspirin Chewable 81 MG TAB ONE (16:34)
[2020-08-27] MEDS ORDERED: Bisacodyl 5 MG TAB PO PRN (18:24)
[2020-08-27] MEDS ORDERED: Senokot S 8.6-50 MG TAB PO PRN (18:24)
[2020-08-27] MEDS ORDERED: Nitroglycerin 0.4 MG TAB (25 Tab Bottle) SL PRN (18:27)
[2020-08-27 18:38] LABS: Troponin I 0.021 ng/mL (< 0.028)
[2020-08-27] MEDS ORDERED: Ondansetron ORAL SOLN. 4 MG/5 ML UDCUP PO PRN (18:39)
[2020-08-27] MEDS ORDERED: Labetalol HCl 100 MG/20 ML VIAL SLOW IVP PRN (19:41)
[2020-08-27 20:07] VITALS: BMI 21.2
[2020-08-27] MEDS ORDERED: Lisinopril 10 MG TAB PO SCH (21:00)
[2020-08-27] MEDS: Lidocaine 2% Viscous Solution 10 ML, Aluminum & Magnesium Hydroxide 30 ML SSW SCH ×4 (21:06→23:28)
[2020-08-27] MEDS: Nitroglycerin 0.4 MG TAB (25 Tab Bottle) SL SCH ×2 (21:06→21:08)
[2020-08-27] MEDS ORDERED: Dextrose 5% in Water 1,000 ML IV PRN (21:10)
[2020-08-27] MEDS: Apixaban 5 MG TAB PO SCH (21:10)
[2020-08-27] MEDS ORDERED: Dextrose 50% Abboject 50 ML SYRINGE SLOW IVP PRN (21:10)
[2020-08-27] MEDS: metFORMIN 500 MG TAB PO SCH (21:12)
[2020-08-27] MEDS: NIFEdipine XL 30 MG TAB PO SCH (21:13)
[2020-08-27] MEDS: Rosuvastatin 20 MG TAB PO SCH (21:13)
[2020-08-27 22:10] LABS: Troponin I 0.029 ng/mL (< 0.028)
[2020-08-28 05:12] LABS: Hemoglobin 9.4 g/dL (12.0-16.0); Platelet Count 241 thou/uL (130-400)
[2020-08-28 05:40] LABS: Anion Gap 13 mmol/L (10-20); BUN (Urea Nitrogen) 21 mg/dL (9.8-20.1); Calc. Creatinine Clearance 35 mL/min (70-130); Calcium 9.4 mg/dL (7.8-10.44); Carbon Dioxide 26 mmol/L (23-31); Chloride 99 mmol/L (98-107); Glucose 69 mg/dL (83-110); Potassium 4.8 mmol/L (3.5-5.1); Sodium 133 mmol/L (136-145)
[2020-08-28 06:04] LABS: Troponin I 0.033 ng/mL (< 0.028)
[2020-08-28] MEDS: Levothyroxine Sodium 50 MCG TAB PO SCH (06:23)
[2020-08-28] MEDS: Escitalopram Oxalate 10 mg Tablet PO SCH (08:32)
[2020-08-28] MEDS: Aspirin 81 mg Enteric Coated Tablet PO SCH (08:32)
[2020-08-28] MEDS: Amiodarone 200 MG TAB PO SCH (08:37)
[2020-08-28] MEDS: metFORMIN 500 MG TAB PO SCH ×2 (08:37→21:14)
[2020-08-28] MEDS: Allopurinol 300 MG TAB PO SCH (08:37)
[2020-08-28] MEDS: Apixaban 5 MG TAB PO SCH (08:38)
[2020-08-28] MEDS ORDERED: Aspirin Chewable 81 MG TAB PO SCH (09:00)
[2020-08-28] MEDS: Lantus 1000 UNITS/10 ML VIAL SC SCH (09:18)
[2020-08-28 11:18] LABS: SARS-CoV-2 PCR by NAA Not Detected (NotDetected)
[2020-08-28] MEDS: Sucralfate 1 GM TAB PO SCH ×3 (12:39→21:15)
[2020-08-28 12:49] LABS: Troponin I 0.019 ng/mL (< 0.028)
[2020-08-28] MEDS ORDERED: Lidocaine 2% Viscous Solution 10 ML, Aluminum & Magnesium Hydroxide 30 ML SSW SCH (13:32)
[2020-08-28] MEDS ORDERED: Lisinopril 20 MG TAB PO SCH (21:00)
[2020-08-28] MEDS: Apixaban 2.5 MG TAB PO SCH (21:11)
[2020-08-28] MEDS: NIFEdipine XL 30 MG TAB PO SCH (21:14)
[2020-08-28] MEDS: Rosuvastatin 20 MG TAB PO SCH (21:14)
[2020-08-29] MEDS: Levothyroxine Sodium 50 MCG TAB PO SCH (05:22)
[2020-08-29 05:55] LABS: Anion Gap 12 mmol/L (10-20); BUN (Urea Nitrogen) 22 mg/dL (9.8-20.1); Calc. Creatinine Clearance 36 mL/min (70-130); Calcium 9.2 mg/dL (7.8-10.44); Carbon Dioxide 26 mmol/L (23-31); Chloride 98 mmol/L (98-107); Glucose 85 mg/dL (83-110); Potassium 4.7 mmol/L (3.5-5.1); Sodium 131 mmol/L (136-145)
[2020-08-29 08:41] VITALS: BP 165/73; TEMP 98.7
[2020-08-29] MEDS ORDERED: PROPOFOL 200 MG/20 ML VIAL ONE (10:27)
[2020-08-29] MEDS ORDERED: Lidocaine 1% PF 5 ML VIAL ONE (10:27)
[2020-08-29] MEDS: Escitalopram Oxalate 10 mg Tablet PO SCH (10:39)
[2020-08-29] MEDS: Aspirin 81 mg Enteric Coated Tablet PO SCH (10:39)
[2020-08-29] MEDS: Allopurinol 300 MG TAB PO SCH (10:39)
[2020-08-29] MEDS: Amiodarone 200 MG TAB PO SCH (10:39)
[2020-08-29] MEDS: Apixaban 2.5 MG TAB PO SCH (10:39)
[2020-08-29] MEDS: Sucralfate 1 GM TAB PO SCH ×2 (10:39→11:55)
[2020-08-29] MEDS: Lantus 1000 UNITS/10 ML VIAL SC SCH (10:39)
[2020-08-29] MEDS: metFORMIN 500 MG TAB PO SCH (10:40)
== END 2020-08-29 15:10 | disposition home or self-care (01) | DRG 313 ==
LOC: ERS 14:21 → 2SW 17:01 → ERHOLD 18:50 → 2SW 19:01 → OBSVTOIN 08-28 13:29
PROVIDERS: ADMIT Student in an Organized Health Care Education/Training Program; ATTEND Student in an Organized Health Care Education/Training Program
PROC: 0DJ08ZZ Inspection of Upper Intestinal Tract, Via Natural or Artificial Opening Endoscopic (ICD-10-PCS; principal; 2020-08-29)
DX: R07.89 Other chest pain (principal); N17.9 Acute kidney failure, unspecified; Z20.822 Contact with and (suspected) exposure to COVID-19; Z66 Do not resuscitate; I10 Essential (primary) hypertension; E03.9 Hypothyroidism, unspecified; K21.9 Gastro-esophageal reflux disease without esophagitis; I25.119 Atherosclerotic heart disease of native coronary artery with unspecified angina pectoris; K59.00 Constipation, unspecified; R10.13 Epigastric pain; K44.9 Diaphragmatic hernia without obstruction or gangrene; E78.5 Hyperlipidemia, unspecified; E78.00 Pure hypercholesterolemia, unspecified; J42 Unspecified chronic bronchitis; E11.9 Type 2 diabetes mellitus without complications; Z95.1 Presence of aortocoronary bypass graft; Z90.49 Acquired absence of other specified parts of digestive tract; Z90.710 Acquired absence of both cervix and uterus; Z87.891 Personal history of nicotine dependence; Z88.8 Allergy status to other drugs, medicaments and biological substances; Z79.890 Hormone replacement therapy; Z79.82 Long term (current) use of aspirin; Z79.84 Long term (current) use of oral hypoglycemic drugs; Z79.899 Other long term (current) drug therapy; Z79.01 Long term (current) use of anticoagulants; Z95.2 Presence of prosthetic heart valve
CPT/HCPCS: 36415; 36416; 71045; 80048; 80053; 82550; 82607; 82746; 83690; 83880; 84484; 85014; 85018; 85025; 85049; 87635; 93005; 94760; G0378; J1815; J2704; U0003; U0005

== ENCOUNTER 2020-09-01 01:49 | Emergency (ER) | payer MEDICARE ==
[2020-09-01] MEDS ORDERED: Aspirin Chewable 81 MG TAB ONE (02:09)
[2020-09-01] MEDS ORDERED: Mag-Al 1200 mg/1200 mg/30 ML UDCUP ONE (02:10)
[2020-09-01] MEDS ORDERED: Lidocaine Viscous Sol 2% 15 ml UD Cup ONE (02:10)
[2020-09-01 02:29] LABS: #Basophils 0.1 thou/uL (0.0-0.2); #Eosinphils 0.1 thou/uL (0.0-0.7); #Lymphocytes 2.2 thou/uL (1.20-3.40); #Monocytes 1.1 thou/uL (0.11-0.59); #Neutrophils 7.3 thou/uL (1.40-6.50); %Basophils 0.5 % (0.0-1.0); %Eosinophils 0.8 % (0.0-10.0); %Lymphocytes 20.2 % (21.0-51.0); %Monocytes 10.6 % (0.0-10.0); %Neutrophils 67.9 % (42.0-75.0); Hemoglobin 10.8 g/dL (12.0-16.0); Mean Corpuscular HGB CONC 33.1 g/dL (32.0-36.0); Mean Corpuscular Hemoglobin 34.1 pg (27.0-31.0); Mean Platelet Volume 6.9 fL (7.4-10.4); Platelet Count 251 thou/uL (130-400); RBC Distribution Width 14.1 % (11.5-14.5); Red Blood Cell (RBC) Count 3.16 mill/uL (4.20-5.40); White Blood Cell (WBC) Count 10.7 thou/uL (4.8-10.8)
[2020-09-01 02:54] LABS: ALT (SGPT) 12 U/L (8-55); AST (SGOT) 14 U/L (5-34); Albumin 3.8 g/dL (3.4-4.8); Alkaline Phosphatase 58 U/L (40-110); Anion Gap 16 mmol/L (10-20); BUN (Urea Nitrogen) 30 mg/dL (9.8-20.1); Bilirubin, Total 0.2 mg/dL (0.2-1.2); Calc. Creatinine Clearance 0 mL/min (70-130); Calcium 10.2 mg/dL (7.8-10.44); Carbon Dioxide 22 mmol/L (23-31); Chloride 98 mmol/L (98-107); Globulin 2.9 g/dL (2.4-3.5); Glucose 102 mg/dL (83-110); Lipase 24 U/L (8-78); Protein, Total 6.7 g/dL (5.8-8.1); Sodium 131 mmol/L (136-145)
== END 2020-09-01 04:44 | disposition home or self-care (01) ==
LOC: ERS 01:49
DX: R07.9 Chest pain, unspecified (principal); E03.9 Hypothyroidism, unspecified; K21.9 Gastro-esophageal reflux disease without esophagitis; E78.5 Hyperlipidemia, unspecified; E11.9 Type 2 diabetes mellitus without complications; I10 Essential (primary) hypertension; Z79.899 Other long term (current) drug therapy; Z79.82 Long term (current) use of aspirin; Z79.4 Long term (current) use of insulin
CPT/HCPCS: 36415; 71045; 80053; 83690; 84484; 85025; 93005; 94760

== ENCOUNTER 2020-09-06 05:10 | Emergency (ER) | payer MEDICARE ==
[2020-09-06 06:07] LABS: #Lymphocytes 1.6 thou/uL (1.20-3.40); #Monocytes 0.9 thou/uL (0.11-0.59); #Neutrophils 7.4 thou/uL (1.40-6.50); %Basophils 0.3 % (0.0-1.0); %Eosinophils 0.4 % (0.0-10.0); %Lymphocytes 16.4 % (21.0-51.0); %Monocytes 8.9 % (0.0-10.0); Hemoglobin 10.8 g/dL (12.0-16.0); Mean Corpuscular HGB CONC 31.9 g/dL (32.0-36.0); Mean Corpuscular Hemoglobin 32.2 pg (27.0-31.0); Mean Platelet Volume 7.2 fL (7.4-10.4); Platelet Count 241 thou/uL (130-400); Red Blood Cell (RBC) Count 3.36 mill/uL (4.20-5.40)
[2020-09-06 06:38] LABS: ALT (SGPT) 19 U/L (8-55); AST (SGOT) 16 U/L (5-34); Albumin 3.7 g/dL (3.4-4.8); Alkaline Phosphatase 61 U/L (40-110); Anion Gap 15 mmol/L (10-20); BUN (Urea Nitrogen) 23 mg/dL (9.8-20.1); Bilirubin, Total 0.2 mg/dL (0.2-1.2); Calc. Creatinine Clearance 0 mL/min (70-130); Calcium 9.7 mg/dL (7.8-10.44); Carbon Dioxide 23 mmol/L (23-31); Chloride 100 mmol/L (98-107); Globulin 2.9 g/dL (2.4-3.5); Glucose 96 mg/dL (83-110); Lipase 18 U/L (8-78); Potassium 4.7 mmol/L (3.5-5.1); Protein, Total 6.6 g/dL (5.8-8.1); Sodium 133 mmol/L (136-145)
[2020-09-06] MEDS ORDERED: Fentanyl 100 MCG/2 ML VIAL ONE (07:38)
== END 2020-09-06 08:05 | disposition home or self-care (01) ==
LOC: ERS 05:10
DX: K59.00 Constipation, unspecified (principal); E03.9 Hypothyroidism, unspecified; I25.119 Atherosclerotic heart disease of native coronary artery with unspecified angina pectoris; K21.9 Gastro-esophageal reflux disease without esophagitis; E78.5 Hyperlipidemia, unspecified; E78.00 Pure hypercholesterolemia, unspecified; E11.9 Type 2 diabetes mellitus without complications; I10 Essential (primary) hypertension; J42 Unspecified chronic bronchitis; Z79.4 Long term (current) use of insulin; Z79.899 Other long term (current) drug therapy; Z79.01 Long term (current) use of anticoagulants; Z79.82 Long term (current) use of aspirin
CPT/HCPCS: 36415; 74022; 74176; 80053; 83690; 84484; 85025; 93005; 96374; J3010